=== PATIENT | female | born 1940 | race Caucasian/White ===

== ENCOUNTER → 2023-05-11 10:02 | Outpatient (REF) | payer MEDICARE, OTHER, SELFPAY ==
[2023-05-11 13:17] LABS: Free T3 2.68 pg/ml (2.77-5.27)
[2023-05-11 13:30] LABS: TSH 9.86 uIU/ml (0.47-4.68)
== END ==
LOC: HWLAB 10:02
PROVIDERS: ATTENDING PHYSICIAN Internal Medicine Endocrinology, Diabetes & Metabolism; FAMILY PHYSICIAN Internal Medicine
DX: E05.80 Other thyrotoxicosis without thyrotoxic crisis or storm (principal)
CPT/HCPCS: 36415; 84439; 84443; 84481

== ENCOUNTER → 2023-08-07 12:41 | Outpatient (REF) | payer MEDICARE, OTHER, SELFPAY ==
[2023-08-07 16:06] LABS: Free T3 1.98 pg/ml (2.77-5.27); Free T4 1.98 ng/dl (0.78-2.19)
[2023-08-07 16:20] LABS: TSH 4.54 uIU/ml (0.47-4.68)
== END ==
LOC: HWLAB 12:41
PROVIDERS: ATTENDING PHYSICIAN Internal Medicine Endocrinology, Diabetes & Metabolism; FAMILY PHYSICIAN Internal Medicine; REFERRING PHYSICIAN Internal Medicine Critical Care Medicine
DX: E05.80 Other thyrotoxicosis without thyrotoxic crisis or storm (principal); J84.9 Interstitial pulmonary disease, unspecified
CPT/HCPCS: 36415; 71046; 84439; 84443; 84481

== ENCOUNTER → 2023-11-16 13:43 | Outpatient (REF) | payer MEDICARE, OTHER, SELFPAY ==
[2023-11-16 15:48] LABS: % Basophils 0.4 % (0-2); % Eosinophils 8.6 % (0-6); % Immature Granulocytes 0.9 % (0-0.5); % Lymphocytes 18.5 % (20.5-51.1); % Monocytes 9.4 % (1.7-9.3); % Neutrophils 62.2 % (42.2-75.2); Absolute Eosinophils 0.8 10^3/uL (0-0.7); Absolute Immature Granulocytes 0.1 10^3/uL (0-0.05); Absolute Lymphocytes 1.7 10^3/uL (1.2-3.4); Absolute Monocytes 0.9 10^3/uL (0.1-0.6); Absolute Neutrophils 5.7 10^3/uL (1.4-6.5); Hematocrit 34.7 % (37.0-47.0); Hemoglobin 11.4 g/dL (12.0-16.0); Mean Corp Hgb Conc. 32.9 g/dL (33.0-37.0); Mean Corpuscular Volume 94.3 fL (81.0-99.0); Nucleated Red Blood Cells % 0 %; Platelet Count 230 10^3/uL (130-400); Red Blood Cell Count 3.68 10^6/uL (4.20-5.40); White Blood Cell Count 9.2 10^3/uL (4.8-10.8)
[2023-11-16 16:23] LABS: Albumin 4.3 g/dl (3.5-5.0); Blood Urea Nitrogen 61 mg/dl (7-17); Calcium 9.5 mg/dl (8.4-10.2); Carbon Dioxide 26 mmol/L (22-30); Chloride 98 mmol/L (98-107); Glucose 108 mg/dl (70-99); Phosphorus 4.3 mg/dl (2.5-4.5); Potassium 5.3 mmol/L (3.5-5.1); Sodium 140 mmol/L (135-145)
== END ==
LOC: HWLAB 13:43
PROVIDERS: ATTENDING PHYSICIAN Internal Medicine Cardiovascular Disease; FAMILY PHYSICIAN Internal Medicine
DX: I48.0 Paroxysmal atrial fibrillation (principal); I10 Essential (primary) hypertension; I48.19 Other persistent atrial fibrillation; I50.32 Chronic diastolic (congestive) heart failure; Z79.01 Long term (current) use of anticoagulants; Z79.899 Other long term (current) drug therapy; R42 Dizziness and giddiness; R00.1 Bradycardia, unspecified
CPT/HCPCS: 36415; 80069; 85025

== ENCOUNTER → 2023-11-20 10:24 | Outpatient (REF) | payer MEDICARE, OTHER, SELFPAY ==
[2023-11-20 11:53] LABS: Blood Urea Nitrogen 72 mg/dl (7-17); Calcium 9.6 mg/dl (8.4-10.2); Carbon Dioxide 28 mmol/L (22-30); Chloride 96 mmol/L (98-107); Glucose 100 mg/dl (70-99); Potassium 4.8 mmol/L (3.5-5.1); Sodium 139 mmol/L (135-145); eGFR 15.48
== END ==
LOC: HWLAB 10:24
PROVIDERS: ATTENDING PHYSICIAN Internal Medicine; REFERRING PHYSICIAN Internal Medicine Cardiovascular Disease
DX: M79.89 Other specified soft tissue disorders (principal); N18.31 Chronic kidney disease, stage 3a; I50.33 Acute on chronic diastolic (congestive) heart failure
CPT/HCPCS: 36415; 80048

== ENCOUNTER → 2023-11-23 10:05 | Outpatient (REF) | payer MEDICARE, OTHER, SELFPAY ==
[2023-11-23 13:03] LABS: Albumin 4.4 g/dl (3.5-5.0); Blood Urea Nitrogen 70 mg/dl (7-17); Calcium 9.8 mg/dl (8.4-10.2); Carbon Dioxide 30 mmol/L (22-30); Chloride 96 mmol/L (98-107); Glucose 107 mg/dl (70-99); Sodium 139 mmol/L (135-145); eGFR 17.65
== END ==
LOC: HWLAB 10:05
PROVIDERS: ATTENDING PHYSICIAN Internal Medicine Cardiovascular Disease; FAMILY PHYSICIAN Internal Medicine
DX: I10 Essential (primary) hypertension (principal)
CPT/HCPCS: 36415; 80069

== ENCOUNTER → 2023-11-24 08:58 | Outpatient (REF) | payer MEDICARE, OTHER, SELFPAY | LOC: HWRCS 08:58 | PROVIDERS: ATTENDING PHYSICIAN Internal Medicine Cardiovascular Disease; FAMILY PHYSICIAN Internal Medicine | DX: I50.32 Chronic diastolic (congestive) heart failure (principal); R60.0 Localized edema | CPT/HCPCS: 93306 ==

== ENCOUNTER → 2023-11-30 10:32 | Outpatient (REF) | payer MEDICARE, OTHER, SELFPAY ==
[2023-11-30 12:50] LABS: Albumin 4.2 g/dl (3.5-5.0); Blood Urea Nitrogen 86 mg/dl (7-17); Calcium 9.8 mg/dl (8.4-10.2); Carbon Dioxide 28 mmol/L (22-30); Chloride 96 mmol/L (98-107); Glucose 105 mg/dl (70-99); Potassium 4.6 mmol/L (3.5-5.1); Sodium 136 mmol/L (135-145); eGFR 15.48
== END ==
LOC: HWLAB 10:32
PROVIDERS: ATTENDING PHYSICIAN Internal Medicine Cardiovascular Disease; FAMILY PHYSICIAN Internal Medicine
DX: I10 Essential (primary) hypertension (principal)
CPT/HCPCS: 36415; 80069

== ENCOUNTER → 2023-12-07 10:08 | Outpatient (REF) | payer MEDICARE, OTHER, SELFPAY ==
[2023-12-07 12:30] LABS: Albumin 4.3 g/dl (3.5-5.0); Blood Urea Nitrogen 67 mg/dl (7-17); Calcium 9.5 mg/dl (8.4-10.2); Carbon Dioxide 28 mmol/L (22-30); Chloride 96 mmol/L (98-107); Glucose 106 mg/dl (70-99); Phosphorus 3.7 mg/dl (2.5-4.5); Potassium 4.4 mmol/L (3.5-5.1); Sodium 140 mmol/L (135-145); eGFR 21.57
== END ==
LOC: HWLAB 10:08
PROVIDERS: ATTENDING PHYSICIAN Internal Medicine Cardiovascular Disease; FAMILY PHYSICIAN Internal Medicine
DX: I10 Essential (primary) hypertension (principal)
CPT/HCPCS: 36415; 80069

== ENCOUNTER → 2023-12-14 10:40 | Outpatient (REF) | payer MEDICARE, OTHER, SELFPAY ==
[2023-12-14 17:32] LABS: Albumin 4.2 g/dl (3.5-5.0); Blood Urea Nitrogen 49 mg/dl (7-17); Calcium 9.5 mg/dl (8.4-10.2); Carbon Dioxide 30 mmol/L (22-30); Chloride 96 mmol/L (98-107); Glucose 108 mg/dl (70-99); Phosphorus 3.7 mg/dl (2.5-4.5); Potassium 4.6 mmol/L (3.5-5.1); Sodium 137 mmol/L (135-145); eGFR 21.57
== END ==
LOC: HWLAB 10:40
PROVIDERS: ATTENDING PHYSICIAN Internal Medicine Cardiovascular Disease; FAMILY PHYSICIAN Internal Medicine; REFERRING PHYSICIAN Internal Medicine
DX: I10 Essential (primary) hypertension (principal)
CPT/HCPCS: 36415; 80069

== ENCOUNTER 2024-01-26 13:01 | Inpatient (IN) | payer MEDICARE, OTHER, SELFPAY ==
[2024-01-25] VITALS (8 sets, daily range): BP systolic 114–151; BP diastolic 51–97; BMI 21.5
[2024-01-25 16:10] LABS: % Basophils 0.5 % (0-2); % Eosinophils 1.6 % (0-6); % Immature Granulocytes 1.3 % (0-0.5); % Lymphocytes 10.7 % (20.5-51.1); % Monocytes 10.6 % (1.7-9.3); % Neutrophils 75.3 % (42.2-75.2); Absolute Basophils 0.1 10^3/uL (0-0.2); Absolute Eosinophils 0.2 10^3/uL (0-0.7); Absolute Immature Granulocytes 0.1 10^3/uL (0-0.05); Absolute Neutrophils 7.1 10^3/uL (1.4-6.5); Hematocrit 36.4 % (37.0-47.0); Hemoglobin 11.8 g/dL (12.0-16.0); Mean Corp Hgb Conc. 32.4 g/dL (33.0-37.0); Mean Corpuscular Hgb 29.9 pg (27.0-31.0); Mean Corpuscular Volume 92.4 fL (81.0-99.0); Mean Platelet Volume 9.4 fL (7.4-10.4); Nucleated Red Blood Cells % 0 %; Platelet Count 291 10^3/uL (130-400); Red Blood Cell Count 3.94 10^6/uL (4.20-5.40); Red Cell Dist. Width 12.5 % (11.5-14.5); White Blood Cell Count 9.4 10^3/uL (4.8-10.8)
[2024-01-25 16:23] LABS: ALT (SGPT) 14 U/L (0-35); AST (SGOT) 28 U/L (14-36); Albumin 3.9 g/dl (3.5-5.0); Alkaline Phosphatase 83 U/L (38-126); Blood Urea Nitrogen 36 mg/dl (7-17); Calcium 9.5 mg/dl (8.4-10.2); Carbon Dioxide 31 mmol/L (22-30); Chloride 93 mmol/L (98-107); Glucose 115 mg/dl (70-99); Potassium 4.8 mmol/L (3.5-5.1); Sodium 135 mmol/L (135-145); Total Bilirubin 0.7 mg/dl (0.2-1.3); Total Protein 6.9 g/dl (6.3-8.2); eGFR 22.81
[2024-01-25 16:32] LABS: COVID-19 Antigen Negative (Negative); NT-proBNP 1530 pg/ml
[2024-01-25] MEDS: DUONEB 9 ML INH (19:03)
[2024-01-25] MEDS: SOLU-MEDROL PF 125 MG IV (19:03)
--- NOTE | 2024-01-25 19:15 | ED.GENMED ---
History of Present Illness
General
Chief Complaint: Breathing Problem
Time Seen by Provider: 01/25/24 17:32
History of Present Illness
History of Present Illness:
83-year-old female with history of asthma, hypertension, CHF, CKD, history of MS presenting to the emergency department for shortness of breath. Patient report shortness of breath for the past week. Notes productive cough and increased lower
extremity edema. She has been compliant with her water pill. Denies any associated chest pain. Denies abdominal pain or GI symptoms. Shortness of breath is worse with exertion. Denies fever or known sick contacts. She has been using her
inhalers at home, was recently prescribed a nebulizer, has not yet started it. Denies additional medical complaints
Past History
Past History
ED Past Medical History: Arrthythmia (A. fib), COPD, HTN and Other (MS in remission, chronic dyspnea)
Social History
Tobacco: Non-smoker
Alcohol: None
Living: alone
Phy Exam
Physical Exam
Physical Exam:
General: Well-appearing, no clinical signs of dehydration, nontoxic and in no acute distress
HEENT: protecting airway
Neck: appears supple
CV: Normal heart rate, regular rhythm
Resp: No accessory muscle use, no increased work of breathing, diminished air movement bilaterally with expiratory wheezing
Abd: Soft and non-distended, no tenderness to palpation
Extremities: No deformities, +2 pitting edema
Neuro: alert, no focal neurologic deficit
: deferred
Rectal: deferred
Psych: Normal affect
Skin: Intact
Scores
Heart Failure Risk
Heart Failure Risk Score: Yes
History of Stroke or TIA: No
History of intubation for respiratory distress: No
Heart rate on ED arrival >/= 110: No
SaO2 <90% on arrival on room air: No
HR >/=110 during 3min walk test (or too ill to perform test): Yes
ECG has acute ischemic changes: No
Urea >/=12mmol/L (BUN 33.6mg/dL): No
Serum CO2>/=35mmol/L: No
Troponin I or T elevated to [place] Level (0.4mg/dL): No
NT-proBNP >/=5,000ng/L (5,000pg/ml): No
HF Risk Score: 2
Admission Status: MEDIUM RISK 9.2% Consider observation or discharge to home with homecare & f/u visit to PCP/Home Economics Expert, or SNF for treatment
Course
Orders/Labs/Results
Orders:
Orders
01/25/24 15:25
Electrocardiogram (*1) Urgent
Reason for Study: Shortness of Breath
EKG- Treatment ONCE
01/25/24 15:48
COVID-19 Antigen Urgent
Source: Nasal Swab
Complete Blood Count/With Diff Urgent
Comprehensive Metabolic Panel Urgent
NT-proBNP Urgent
Influenza A+B Rapid Molecular Urgent
SHERLY Source: Nasal Swab
Specimen Description:
01/25/24 18:26
Ipratropium/Albuterol Sulfate [Duoneb] 9 ml INH R NOW STA
MethylPREDNISolone PF [Solu-Medrol Pf] 125 mg IV NOW STA
01/25/24 18:27
CR Chest - 2 Views Urgent
Comment:
Reason For Exam: SOB
01/25/24 20:22
Apixaban [Eliquis] 2.5 mg PO ONCE ONE
01/25/24 21:11
Admit/Transfer Patient As Directed
Co-Sign Provider:
Level of Care: Observation services
Assign to:: Telemetry
Physician / Group: javier
Diagnosis: viral uri asthma exacerbation
Reason for Telemetry: Arrhythmia
Date to Stop Telemetry: 01/28/24
Time to Stop Telemetry: 11:00
PRN Pain Medication Management As Directed
May give lesser potent ordered pain med per pt: Yes
preference::
Protocol:: Medication orders for pain may be administered in a
manner that supports deferring to patient preference
when the pt is:
- Requesting an ordered lesser potent pain medication.
Least to most potent pain medications are defined
as: acetaminophen < NSAID < tramadol < opioids
(morphine, oxycodone, hydromorphone).
- Requesting a lesser dose of the same medication IF
ORDERED.
- Requesting a less intrusive route of administration
if both routes are prescribed by the provider (PO <
IV).
01/25/24 21:14
Code Status As Directed
Resuscitation Status: Full Code
01/28/24 11:00
DC Protocol for Telemetry ONCE
Abnormal Lab Results
01/25/24
15:48
RBC 3.94 L 10^6/uL
(4.20-5.40)
Hgb 11.8 L g/dL
(12.0-16.0)
Hct 36.4 L %
(37.0-47.0)
MCHC 32.4 L g/dL
(33.0-37.0)
Abs Immat Gran (auto) 0.1 H 10^3/uL
(0-0.05)
Absolute Neuts (auto) 7.1 H 10^3/uL
(1.4-6.5)
Absolute Lymphs (auto) 1.0 L 10^3/uL
(1.2-3.4)
Absolute Monos (auto) 1.0 H 10^3/uL
(0.1-0.6)
Immature Gran % 1.3 H %
(0-0.5)
Neutrophils % 75.3 H %
(42.2-75.2)
Lymphocytes % 10.7 L %
(20.5-51.1)
Monocytes % 10.6 H %
(1.7-9.3)
Chloride 93 L mmol/L
(98-107)
Carbon Dioxide 31 H mmol/L
(22-30)
BUN 36 H mg/dl
(7-17)
Creatinine 2.1 H mg/dL
(0.6-1.0)
Glucose 115 H mg/dl
(70-99)
01/25/24 15:48
01/25/24 15:48
Vital Signs
Initial and Last Documented VS:
Initial Vital Signs
Pulse Resp Pulse Ox
88 20 94
01/25/24 15:17 01/25/24 15:17 01/25/24 15:17
Last Documented Vital Signs
Temp Pulse Resp BP Pulse Ox
97.9 F 90 28 136/52 92
01/25/24 15:21 01/25/24 21:15 01/25/24 21:15 01/25/24 21:00 01/25/24 21:15
MDM/Problems Addressed
MDM/Problems Addressed:
83-year-old female with history of hypertension, CHF, COPD, MS presenting for shortness of breath for the past week and dyspnea on exertion. Vital signs on arrival are normal.
On exam, patient is in no acute respiratory distress, however does have diminished air movement bilaterally with expiratory wheezing. Patient also has increased lower extremity edema from reported baseline. Differential considerations include
acute on chronic CHF/asthma exacerbation. Patient had laboratory analysis, BNP appears to be at baseline. Will obtain chest x-ray imaging to evaluate possible pneumonia versus pulmonary edema. Will start patient on DuoNebs and steroids and
reassess for improvement
20:20 -patient's chest x-ray without evidence of pneumonia or significant pulmonary edema. On reassessment patient does note mild improvement of her symptoms, however remains conversationally dyspneic. She reports that she has been sitting around
her house because she has been so short of breath. She supposed to get a nebulizer, however it has not yet been delivered to her house. At this time feel unsafe disposition given persistence of symptoms. Plan for admission for asthma exacerbation
shortness of breath
*EKG
Interpreted by ED Provider?: Yes
EKG Intrepretation Date: 01/25/24
EKG Intrepretation Time: 19:18
Interpretation: normal
Comparison EKG: changes noted (previously afib 10/03/20)
Heart Rate: 76
Rate: normal
Rhythm: sinus
[place]: normal axis
Interval: normal interval
QRS Pattern: normal QRS
Ischemia: no ischemia
*Critical Care Note
Total Time (30-74mins, 75-104mins- exclusive of procedures): Not Applicable
ED Attending Note
-
Portions of this chart may have been created with voice recognition software.� Occasional wrong word or��sound alike� substitutions may have occurred due to the inherent limitations of voice recognition software.
Discharge Plan
Departure
Patient Disposition: Admit
Date of Disposition: 01/25/24
Time of Disposition: 20:30
Presentation/result/management discussed w/ accepting MD/DO: Hospitalist
Condition: Good
Discharge Problem:
Asthma exacerbation, HAMMER (dyspnea on exertion)
Interventions
Interventions:
*Risk Screen - Suicide Last Done: 01/25/24 15:24
*General Assessment Last Done: 01/25/24 17:40
*Neglect/Abuse Screening Last Done: 01/25/24 15:24
ED- Fall Risk Assessment Last Done: 01/25/24 17:42
*ED COVID-19 Vaccine History Last Done: 01/25/24 15:24
ED- Cardiac Assessment Last Done: 01/25/24 18:00
ED- Pulmonary Assessment Last Done: 01/25/24 18:00
[2024-01-25] MEDS: ELIQUIS 2.5 MG PO (20:48)
--- NOTE | 2024-01-25 21:16 | HPS.HSE ---
Addendum entered and electronically signed by Leta Yap MD 01/25/24 22:25:
Eliquis dose reduced due to CKD/age.
Addendum entered and electronically signed by Leta Yap MD 01/25/24 21:18:
Increased bumex to 3 BID.
Original Note:
Family Physician
-
Family Physician: Félix Cavanaugh
Chief Complaint
-
shortness of breath
History of Present Illness
83-year-old female past medical history of permanent atrial fibrillation, HFpEF, hypertension, asthma, multiple sclerosis, avascular necrosis of left hip, cervical spine radiculopathy, degenerative disc disease, chronic kidney disease, presenting
for shortness of breath for the past week. Shortness of breath worse with exertion. He has productive and stable lower extremity edema. No weight gain in fact has lost weight. Denies chest pain. Denies abdominal pain or nausea vomiting or
diarrhea. No sick contacts. She is complaining of some headache and some sore throat at this time.
Medical History
Past Medical History
Past Medical History: Reports Other (permanent atrial fibrillation, HFpEF, hypertension, asthma, multiple sclerosis, avascular necrosis of left hip, cervical spine radiculopathy, degenerative disc disease, chronic kidney disease)
Past Surgical History: Reports None
Social History
Tobacco: Non-smoker
Alcohol: None
Drug: None
Family History
Family History: Not pertinent
Allergies / Home Medications
Allergies reflects when Allergies were last updated in [employer].
Home Medications with original date entered in [employer]
Allergy/Medication List:
Allergies
Allergy/AdvReac Type Severity Reaction Status Date / Time
erythromycin base Allergy Unknown Verified 07/30/20 11:38
mushroom Allergy Swelling Verified 07/30/20 11:38
NSAIDS (Non-Steroidal Allergy GI Upset Verified 07/30/20 11:38
Anti-Inflamma
shellfish derived Allergy Rash Verified 07/30/20 11:38
strawberry Allergy GI Upset Verified 07/30/20 11:38
Sulfa (Sulfonamide Allergy Unknown Verified 07/30/20 11:38
Antibiotics)
sulfamethoxazole Allergy Rash Verified 07/30/20 11:38
[From Bactrim]
trimethoprim [From Bactrim] Allergy Rash Verified 07/30/20 11:38
jared Allergy swelling Uncoded 07/30/20 11:38
and
flushing
hands and
face
margarine Allergy Rash Uncoded 07/30/20 11:38
Home Medications
mometasone 220 mcg/actuation(120 doses)breath activated powder inhaler (Asmanex Twisthaler) 1 puff inhalation R BID Lung/breathing issues 02/04/20
apixaban 5 mg tablet (Eliquis) 5 mg PO BID Blood clot prevention/tx 03/11/20
potassium chloride 20 mEq tablet,extended release(part/cryst) (Klor-Con M) 20 meq PO DAILY Electrolyte Repletion 07/30/20
acetaminophen 325 mg tablet (Tylenol) 325 mg PO DAILYPRN PRN mild pain 01/25/24
amiodarone 100 mg tablet 100 mg PO DAILY 01/25/24
bumetanide 2 mg tablet 4 mg PO DAILY Fluid retention/Swelling 01/25/24
levalbuterol tartrate 45 mcg/actuation aerosol inhaler 2 inh inhalation R Q6HPRN PRN sob 01/25/24
levothyroxine 25 mcg tablet 25 mcg PO DAILY 01/25/24
metoprolol succinate 25 mg tablet,extended release 24 hr 25 mg PO DAILY 01/25/24
Review of Systems
-
History Source: Patient
A 12 point ROS was completed and negative except as noted: Yes
Constitutional: Reports No Symptoms
EENT: Reports No Symptoms
Cardiac: Reports See HPI
Abdomen/GI: Reports No Symptoms
: Reports No Symptoms
Musculoskeletal: Reports No Symptoms
Skin: Reports No Symptoms
Neurological: Reports No Symptoms
Endocrine: Reports No Symptoms
Hematologic/Lymphatic: Reports No Symptoms
Psych: Reports No Symptoms
Physical Exam
Vital Signs
Vital Signs
Temp Pulse Resp BP Pulse Ox
97.9 F 90 30 135/51 93
01/25/24 15:21 01/25/24 20:45 01/25/24 20:45 01/25/24 20:00 01/25/24 20:45
Physical Exam
General: Well Developed, Well Nourished and No Apparent Distress
HEENT: NormoCephalic, Moist mucous membranes and Atraumatic
Respiratory: Clear
Cardiac: S1/S2, Regular Rhythm and Peripheral Edema; No Murmur or Rub
GI: Soft, Non Tender, Non Distended and Normal Bowel Sounds; No Organomegaly
Rectal: Deferred by Provider
Musculoskeletal: No Clubbing, No Cyanosis and No Edema
Skin: No Rash
Neuro: Nonfocal/grossly intact
Laboratory Results
-
01/25/24 15:48
01/25/24 15:48
Laboratory Results
Total Bilirubin 0.7 mg/dl (0.2-1.3) 01/25/24 15:48
AST 28 U/L (14-36) 01/25/24 15:48
ALT 14 U/L (0-35) 01/25/24 15:48
Alkaline Phosphatase 83 U/L (38-126) 01/25/24 15:48
Data Reviewed
-
Lab Data: Labs Reviewed by me
Old Records: Reviewed
Impression/Plan
-
IMPRESSION:
PLAN:
# Viral URI induced asthma exacerbation
-Chest x-ray showing mild cardiomegaly which is new, mild pulmonary edema
-Cardiac BNP 1500
-DuoNebs every 6 hours
-Dexamethasone 4 mg every 12
# Mild CHF exacerbation
#Chronic HFpEF
-Check I's and O's, daily weights
-Bumex 2 mg twice daily IV
Permanent atrial fibrillation
-Continue amiodarone
-Continue Eliquis
-Continue diltiazem
-Continue metoprolol
Essential hypertension
Chronic kidney disease
-Renal function at baseline
Multiple sclerosis
Avascular necrosis of left hip
Cervical spine radial apathy
Degenerative disc disease
Full code
DVT prophylaxis�Eliquis
cardiac diet
[2024-01-26] VITALS (15 sets, daily range): BP systolic 104–144; BP diastolic 51–86; BMI 29.8
[2024-01-26] MEDS: BUMEX IV (01:27)
[2024-01-26] MEDS: SYNTHROID 25 MCG PO (06:30)
[2024-01-26 06:57] LABS: % Basophils 0.3 % (0-2); % Immature Granulocytes 4.1 % (0-0.5); % Lymphocytes 11.3 % (20.5-51.1); % Monocytes 1.4 % (1.7-9.3); % Neutrophils 82.9 % (42.2-75.2); Absolute Immature Granulocytes 0.3 10^3/uL (0-0.05); Absolute Lymphocytes 0.9 10^3/uL (1.2-3.4); Absolute Monocytes 0.1 10^3/uL (0.1-0.6); Absolute Neutrophils 6.6 10^3/uL (1.4-6.5); Hematocrit 33.9 % (37.0-47.0); Hemoglobin 11.1 g/dL (12.0-16.0); Mean Corp Hgb Conc. 32.7 g/dL (33.0-37.0); Mean Corpuscular Hgb 30.6 pg (27.0-31.0); Mean Corpuscular Volume 93.4 fL (81.0-99.0); Mean Platelet Volume 9.7 fL (7.4-10.4); Nucleated Red Blood Cells % 0 %; Platelet Count 279 10^3/uL (130-400); Red Blood Cell Count 3.63 10^6/uL (4.20-5.40); Red Cell Dist. Width 12.6 % (11.5-14.5)
[2024-01-26 07:01] LABS: ALT (SGPT) 14 U/L (0-35); AST (SGOT) 25 U/L (14-36); Albumin 3.4 g/dl (3.5-5.0); Alkaline Phosphatase 75 U/L (38-126); Blood Urea Nitrogen 38 mg/dl (7-17); Calcium 9.3 mg/dl (8.4-10.2); Carbon Dioxide 27 mmol/L (22-30); Chloride 97 mmol/L (98-107); Estimated Creatinine Clearance 20 ml/min; Glucose 167 mg/dl (70-99); Potassium 5.1 mmol/L (3.5-5.1); Sodium 137 mmol/L (135-145); Total Bilirubin 0.5 mg/dl (0.2-1.3); Total Protein 6.5 g/dl (6.3-8.2); eGFR 21.57
[2024-01-26] MEDS: DUONEB 3 ML INH ×4 (07:24→19:22)
[2024-01-26] MEDS: FLOVENT 110 MCG INHALER 2 PUFF INH ×2 (07:25→19:22)
[2024-01-26] MEDS: PACERONE 100 MG PO (08:32)
[2024-01-26] MEDS: KCL 20 MEQ PO (08:32)
[2024-01-26] MEDS: TOPROL XL 25 MG PO (08:32)
[2024-01-26] MEDS: ELIQUIS 2.5 MG PO ×2 (08:32→20:45)
[2024-01-26] MEDS: DECADRON 4 MG IV ×2 (08:33→20:45)
[2024-01-26] MEDS: BUMEX 3 MG IV ×2 (08:35→17:24)
--- NOTE | 2024-01-26 13:02 | W.PN.HOSP.TC ---
Today's Communication/Plan
-
Continue with bronchodilators
Continue with IV steroids
Speech evaluation
IV diuretics
Cardiology and pulmonary evaluation
Strict I's and O's. Daily weights.
Assessment / Plan
Assessment / Plan
# Acute on chronic bronchitis/? Asthma exacerbation
#Chronic cough/interstitial lung disease/history of multiple pulmonary nodules
-Chest x-ray showing mild cardiomegaly which is new, mild pulmonary edema
-Cardiac BNP 1500
-DuoNebs every 6 hours
-Dexamethasone 4 mg every 12
-Follows with Dr. Bridges as outpatient. Pulm eval.
-speech eval
# Acute on chronic diastolic heart failure exacerbation likely secondary to meds noncompliance
-Check I's and O's, daily weights
-Recent ECHO 12/16 normal left ventricular size thickness and function. EF 60 to 65%. Normal right ventricular size and function. Mild tricuspid regurgitation. PASP of 40 mmHg. No need to repeat TTE.
-Bumex 3 mg twice daily IV
-counseled on compliance of meds as outpatient.
-Trend cr closely as with CKD.
Permanent atrial fibrillation
-Continue amiodarone
-Continue Eliquis dose decreased based on aga/cr.
-Continue diltiazem
-Continue metoprolol
Essential hypertension
Chronic kidney disease
-Renal function at baseline
Multiple sclerosis
Avascular necrosis of left hip
Cervical spine radial apathy
Degenerative disc disease
Full code
DVT prophylaxis�Eliquis
cardiac diet
Anticipated Discharge: > 48 hours
Subjective/Interval History
-
Date of Service: January 26, 2024
states of LE edema
states reduce taking her diuretics at home
recently seen by nephrology
on room air
Objective Data
-
Labs:
Laboratory Results
01/26/24
06:35
WBC 8.0
Hgb 11.1 L
Hct 33.9 L
Plt Count 279
Sodium 137
Potassium 5.1
Chloride 97 L
Carbon Dioxide 27
BUN 38 H
Creatinine 2.2 H
Glucose 167 H
Calcium 9.3
Total Bilirubin 0.5
AST 25
ALT 14
Alkaline Phosphatase 75
Vital Signs:
Vital Signs
Temp Pulse Resp BP Pulse Ox
98.2 F 85 16 128/58 94
01/26/24 10:41 01/26/24 11:19 01/26/24 11:19 01/26/24 09:00 01/26/24 12:06
Physical Exam
-
General: Well Developed and No Apparent Distress
HEENT: Normocephalic, Atraumatic and Moist Mucous Membranes
Respiratory: Decreased Breath Sounds
Cardiac: Regular Rhythm and S1/S2; Negative Murmur, Rub or Gallop
GI: Soft, Nontender, Nondistended and Normal Bowel Sounds; Negative Organomegaly
Rectal: Deferred by Provider
Musculoskeletal: No Clubbing, No Cyanosis, Edema, Right Lower Extrem and Edema, Left Lower Extrem
Skin: Negative Rash
Neuro: Awake, No Motor Deficits and Nonfocal/Grossly Intact
Psych: Calm
Data Reviewed
-
Total Time Spent with Patient (in minutes): 55
--- NOTE | 2024-01-26 14:10 | CON.CAR ---
Addendum entered and electronically signed by Milton Jenkins MD 01/26/24 16:09:
I saw and examined the patient.
The LOCKSTITCH SHOULDER JOINER's note was reviewed and I agree with the note.
Comment: Acute on chronic HFpEF with stable CKD4. She seems to be responding diuresis. CKD complicates GDMT but as an outpatient perhaps SGLT-I and MRA will be able to be added, we can review with Dr. Bowers and her manufacturing quality technician. At discharge
anticipate BID diuretic 3 times a week and just one time a day the other 4 days of the week.
Original Note:
Consultation
Consultation Request
Date/Time Consultation Requested: 01/26/2024 13:00
Date/Time Consultation Performed: 01/26/2024 14:10
Requesting Provider: Dr. Nice
Performing Provider: CASS Staley for Dr. Jenkins
Reason for Consultation: Acute on chronic heart failure exacerbation
Medical History
-
Chief Complaint: Shortness of breath
History of Present Illness:
Efrain Laughlin is an 83-year-old female (known to Dr. Bowers, her primary cake cutter machine), with persistent atrial fibrillation (maintaining sinus rhythm on amiodarone) on apixaban, HFpEF, COPD, CKD, asthma, ILD, and multiple sclerosis who presented to
the emergency department with a chief complaint of shortness of breath. She reports she self decreased her bumetanide from 2 mg twice daily to just daily dosing. She reports the urinary frequency was disruptive all to her life. Her shortness of
breath has improved since receiving intravenous diuretic. She is having no chest pain. She endorses associated moist productive cough which is improving with nebulizer treatments.
Past Medical History
Past Medical History: Arrhythmias (Persistent atrial fibrillation [on amiodarone]), Asthma, CHF (HFpEF), COPD, Renal Failure (CKD) and Other (Multiple sclerosis)
Past Surgical History: Cholecystectomy
Social History
Tobacco: Non-Smoker
Alcohol: None
Living: Alone
Employment: Retired
Family History
Family History: Reviewed & Not Pertinent
Allergies / Home Medications
Allergy/AdvReac Type Severity Reaction Status Date / Time
erythromycin base Allergy Unknown Verified 07/30/20 11:38
mushroom Allergy Swelling Verified 07/30/20 11:38
NSAIDS (Non-Steroidal Allergy GI Upset Verified 07/30/20 11:38
Anti-Inflamma
shellfish derived Allergy Rash Verified 07/30/20 11:38
strawberry Allergy GI Upset Verified 07/30/20 11:38
Sulfa (Sulfonamide Allergy Unknown Verified 07/30/20 11:38
Antibiotics)
sulfamethoxazole Allergy Rash Verified 07/30/20 11:38
[From Bactrim]
trimethoprim [From Bactrim] Allergy Rash Verified 07/30/20 11:38
jared Allergy swelling Uncoded 07/30/20 11:38
and
flushing
hands and
face
margarine Allergy Rash Uncoded 07/30/20 11:38
�Medication �Instructions �Recorded �Confirmed �Type
mometasone 220 mcg/actuation(120 1 puff inhalation R BID 02/04/20 01/25/24 History
doses)breath activated powder Lung/breathing issues
inhaler (Asmanex Twisthaler)
apixaban 5 mg tablet (Eliquis) 5 mg PO BID Blood clot 03/11/20 01/25/24 History
prevention/tx
potassium chloride 20 mEq 20 meq PO DAILY Electrolyte 07/30/20 01/25/24 History
tablet,extended Repletion
release(part/cryst) (Klor-Con M)
acetaminophen 325 mg tablet 325 mg PO DAILYPRN PRN mild pain 01/25/24 01/25/24 History
(Tylenol)
amiodarone 100 mg tablet 100 mg PO DAILY Heart 01/25/24 01/25/24 History
Disease/Condition
bumetanide 2 mg tablet 4 mg PO DAILY Fluid 01/25/24 01/25/24 History
retention/Swelling
levalbuterol tartrate 45 2 inh inhalation R Q6HPRN PRN sob 01/25/24 01/25/24 History
mcg/actuation aerosol inhaler
levothyroxine 25 mcg tablet 25 mcg PO DAILY Thyroid 01/25/24 01/25/24 History
metoprolol succinate 25 mg 25 mg PO DAILY Heart 01/25/24 01/25/24 History
tablet,extended release 24 hr Disease/Condition
Review of Systems
-
History Source: Patient
All other systems: Negative unless noted
Constitutional: Fatigue
EENT: No Symptoms
Respiratory: Cough and Trouble Breathing
Cardiac: No Symptoms
Abdomen/GI: No Symptoms
: No Symptoms
Musculoskeletal: No Symptoms and Edema
Skin: No Symptoms
Neurological: No Symptoms
Endocrine: No Symptoms
Hematologic/Lymphatic: No Symptoms
Physical Exam
Vital Signs
Temp Pulse Resp BP Pulse Ox
98.2 F 85 16 128/58 94
01/26/24 10:41 01/26/24 11:19 01/26/24 11:19 01/26/24 09:00 01/26/24 12:06
Lab Results
01/26/24 06:35
01/26/24 06:35
Use-X-Vifnicrjwit Pept 1530 pg/ml 01/25/24 15:48
Physical Exam
General: Well Developed, Well Nourished, No Apparent Distress and Comfortable
HEENT: Normocephalic, Anicteric and Moist Mucous Membranes
Respiratory: Crackles and Non Labored Respirations
Cardiac: S1/S2 and Regular Rhythm
Breast: Deferred by me
GI: Soft, Non Tender, Non Distended and Normal Bowel Sounds
Rectal: Deferred by Provider
Genito-urinary: No Costovertebral Tender
Musculoskeletal: No Clubbing, No Cyanosis and Edema
Skin: Warm and Dry
Neuro: AO x 3
Hematologic/Lymphatic: No Lymphadenopathy
Psych: Calm
Impression / Plan
-
IMPRESSION/PLAN: 83F with persistent atrial fibrillation (maintaining sinus rhythm on amiodarone) on apixaban, HFpEF, COPD, CKD, asthma, ILD, and multiple sclerosis who presented to the emergency department with a chief complaint of shortness of
breath.
Outpatient cake cutter machine: Dr. Bowers
HFpEF, acute on chronic
-Weight is down compared to office visit in November
-In the outpatient setting she is on bumetanide 2 mg twice daily, which the then decreased to bumetanide 2 daily, her home medication list is incorrect
-Diuresis with intravenous bumetanide ordered by primary service, this requires intensive monitoring given her underlying kidney disease
-Trend daily weight, I&O, and BMP with diuresis
-Heart failure education including medication adherence
-Echocardiogram was completed within the last 60 days, does not need to be repeated
CKD stage IV
-Follow with diuresis
-Managed by Dr. Ellsworth in the outpatient setting
Asthma exacerbation secondary to viral URI
-COPD, asthma, & ILD managed by Dr. Bridges in the outpatient setting
-DuoNebs and dexamethasone ordered by primary service
Persistent atrial fibrillation, currently in sinus rhythm
-Continue amiodarone
-Oral Anticoagulation: Apixaban 2.5 mg twice daily (age 83, creatinine >1.5), I confirmed with e-prescriptions, her home medication list is incorrect
-[id number]: Score at least 5 (Heart failure, HTN, age 75 or more, female gender)
Hypertension, BP stable, follow with diuresis
Multiple sclerosis, stable without acute exacerbation
DATA:
Transthoracic echocardiogram, 11/24/2023:
CONCLUSIONS
Normal left ventricular size, wall thickness and systolic function.
LV ejection fraction is 60-65% by Mckinnon's method of discs.
Normal right ventricular size and function.
Mild tricuspid regurgitation.
Estimated pulmonary artery pressure of 40 mmHg, assuming a right atrial
pressure of 3 mmHg.
Compared to prior from February 06, 2020, estimated PASP is mildly elevated at
40 mmHg previously 27 mmHg.
--- NOTE | 2024-01-26 14:54 | PTOTSP ---
ST Acute Care Evaluation
Pt is currently presenting with clinical signs suspicious for possible pharyngeal dysphagia. Pt would benefit from an instrumental swallow study to gather more information.
Recommendations:
- Downgrade diet to SOFT BITE SIZED SOLIDS and continue with regular thin liquids with meds whole in puree.
- Aspiration precautions: Continue with HOB upright for all PO intake; small bites/sips; alternate bites/sips; eat/drink slowly; cough/clear throat if vocal quality sounds atypical.
- DAY CARE WORKER to complete instrumental swallow study for more information.
- DAY CARE WORKER to provide additional recommendations pending the results of the instrumental swallow study.
--- NOTE | 2024-01-26 17:44 | PTCARENOTE ---
Pt arrived to unit via wheelchair from ED. Pt ambulated with assist x1 into the room and was able to stand on the scale. Pt placed on child monitor, sinus rhythm. All other VSS. Pt is alert and oriented x3. Denies any pain. Lungs clear. HR
regular. +1 b/l LE edema. IV bumex given per APR. Skin intact. Pt is currently resting in the chair. Able to make needs known. All needs are meet at this time. Call portillo is within reach.
[2024-01-27] VITALS (7 sets, daily range): BP systolic 126–150; BP diastolic 65–74; PULSE 87; O2SAT 96; BMI 29.6
[2024-01-27] MEDS: SYNTHROID 25 MCG PO (05:51)
[2024-01-27 07:16] LABS: % Basophils 0.2 % (0-2); % Immature Granulocytes 4.1 % (0-0.5); % Lymphocytes 4.3 % (20.5-51.1); % Monocytes 3.8 % (1.7-9.3); % Neutrophils 87.6 % (42.2-75.2); Absolute Immature Granulocytes 0.9 10^3/uL (0-0.05); Absolute Lymphocytes 0.9 10^3/uL (1.2-3.4); Absolute Monocytes 0.8 10^3/uL (0.1-0.6); Absolute Neutrophils 18.9 10^3/uL (1.4-6.5); Hematocrit 34.5 % (37.0-47.0); Hemoglobin 11.7 g/dL (12.0-16.0); Mean Corp Hgb Conc. 33.9 g/dL (33.0-37.0); Mean Corpuscular Hgb 30.5 pg (27.0-31.0); Mean Corpuscular Volume 90.1 fL (81.0-99.0); Mean Platelet Volume 9.9 fL (7.4-10.4); Nucleated Red Blood Cells % 0 %; Platelet Count 291 10^3/uL (130-400); Red Blood Cell Count 3.83 10^6/uL (4.20-5.40); Red Cell Dist. Width 12.7 % (11.5-14.5); White Blood Cell Count 21.6 10^3/uL (4.8-10.8)
[2024-01-27] MEDS: DUONEB 3 ML INH ×4 (07:29→19:20)
[2024-01-27] MEDS: FLOVENT 110 MCG INHALER 2 PUFF INH ×2 (07:29→19:21)
[2024-01-27 07:37] LABS: Blood Urea Nitrogen 50 mg/dl (7-17); Calcium 9.8 mg/dl (8.4-10.2); Carbon Dioxide 28 mmol/L (22-30); Chloride 96 mmol/L (98-107); Estimated Creatinine Clearance 15 ml/min; Glucose 158 mg/dl (70-99); Potassium 4.5 mmol/L (3.5-5.1); Sodium 137 mmol/L (135-145); eGFR 20.45
[2024-01-27] MEDS: PACERONE 100 MG PO (08:20)
[2024-01-27] MEDS: TOPROL XL 25 MG PO (08:20)
[2024-01-27] MEDS: ELIQUIS 2.5 MG PO ×2 (08:20→20:20)
[2024-01-27] MEDS: KCL 20 MEQ PO (08:20)
[2024-01-27] MEDS: DECADRON 4 MG IV ×2 (08:22→20:19)
[2024-01-27] MEDS: BUMEX 3 MG IV (08:22)
--- NOTE | 2024-01-27 08:35 | PTOTSP ---
Speech Language Pathology
VIDEOFLUOROSCOPIC SWALLOWING EXAMINATION (VSE) completed. Functional oropharyngeal swallow noted. No significant pharyngeal residue, and no penetration/aspiration noted. Esophageal sweep demonstrated significant residue and questionable small
Zenker's diverticulum. Can consider GI consult as outpatient if pt interested.
Recommend:
(1) Regular solids/thin liquids
(2) General aspiration precautions
(3) Meds as tolerated
(4) TACO MAKER to sign off. Please reconsult as indicated
--- NOTE | 2024-01-27 10:20 | W.PN.CD ---
Today's Communication / Plan
-
Hold p.m. diuresis for rising creatinine.
Hopefully can transition to p.o. diuretics tomorrow.
Impression / Plan
-
IMPRESSION/PLAN: 83F with persistent atrial fibrillation (maintaining sinus rhythm on amiodarone) on apixaban, HFpEF, COPD, CKD, asthma, ILD, and multiple sclerosis who presented to the emergency department with a chief complaint of shortness of
breath.
Outpatient clinical review nurse: Dr. Bowers
HFpEF, acute on chronic
-Weight is down compared to office visit in November
-In the outpatient setting she is on bumetanide 2 mg twice daily, which the then decreased to bumetanide 2 daily, her home medication list is incorrect
-Creatinine is rising, hold p.m. dose of diuretics and resume p.o. tomorrow if kidney function is stable
-Trend daily weight, I&O, and BMP with diuresis
-Heart failure education including medication adherence
-Echocardiogram was completed within the last 60 days, does not need to be repeated
Significant leukocytosis
-WBC 21 today, previously normal
-May be spurious. No sign/symptoms of infection
-Workup per primary team
CKD stage IV
-Follow with holding p.m. diuresis
-Managed by Dr. Ellsworth in the outpatient setting
Asthma exacerbation secondary to viral URI
-COPD, asthma, & ILD managed by Dr. Bridges in the outpatient setting
-DuoNebs and dexamethasone ordered by primary service
Persistent atrial fibrillation, currently in sinus rhythm
-Continue amiodarone
-Oral Anticoagulation: Apixaban 2.5 mg twice daily (age 83, creatinine >1.5), confirmed with e-prescriptions, her home medication list is incorrect
-[id number]: Score at least 5 (Heart failure, HTN, age 75 or more, female gender)
Hypertension, BP stable, follow with diuresis
Multiple sclerosis, stable without acute exacerbation
DATA:
Transthoracic echocardiogram, 11/24/2023:
CONCLUSIONS
Normal left ventricular size, wall thickness and systolic function.
LV ejection fraction is 60-65% by Mckinnon's method of discs.
Normal right ventricular size and function.
Mild tricuspid regurgitation.
Estimated pulmonary artery pressure of 40 mmHg, assuming a right atrial
pressure of 3 mmHg.
Compared to prior from February 06, 2020, estimated PASP is mildly elevated at
40 mmHg previously 27 mmHg.
Subjective: Feels significantly improved compared to prior. Received 3 mg IV Bumex twice daily yesterday. Weight is 66.4 kg from 66.8 kg yesterday. Creatinine is stable.
Physical Exam
Vital Signs/Labs
Vital Signs
Temp Pulse Resp BP Pulse Ox
97.7 F 82 16 132/65 93
01/27/24 07:39 01/27/24 07:39 01/27/24 07:39 01/27/24 07:39 01/27/24 07:39
01/26/24 01/27/24 01/28/24
06:59 06:59 06:59
Actual Weight 67.9 kg 66.451 kg
01/27/24 06:42
01/27/24 06:42
01/25/24
15:48
[id number] Pept 1530
Physical Exam
Constitutional: No acute distress and Comfortable
Cardiovascular: Rhythm & rate is regular, Pedal edema present, S1S2 is normal and Murmur/rub/gallop absent
Respiratory: Respiratory effort normal and Lungs clear to auscul.
Data Reviewed
-
Date of Service: January 27, 2024
Medical Decision Making: Reviewed Test Results, Independent Historian Assessment, Test Interpretation and Review of Case with other Provider
Echo: Report Reviewed by me
Labs: Labs Reviewed by me
--- NOTE | 2024-01-27 10:30 | CON.PUL ---
Consultation
Consultation Request
Date/Time Consultation Requested: 01/27/24-8 a.m.
Date/Time Consultation Performed: 01/27/24-8:30 AM
Requesting Provider: Hospitalist
Performing Provider: Dr. Rodriguez
Reason for Consultation: Shortness of breath
Medical History
-
Chief Complaint: Shortness of breath
History of Present Illness:
83-year-old female patient with underlying asthma followed by Dr. Bridges who also has chronic heart failure with preserved EF and stable chronic kidney disease stage IV presented with increasing shortness of breath and pulmonary was consulted for
shortness of breath/asthma 01/27/2024.. The patient feels improved since she came to the hospital. She states that her legs had swollen. They've improved. She also had increasing shortness breath, wheezing, no fevers, chills, productive cough,
but has some chest congestion in the middle nonproductive cough. She has no pleurisy, and offered no complaints of abdominal pain, nausea, focal weakness
Past Medical History
Past Medical History: None ( COPD/asthma. interstitial lung disease. Multiple pulmonary nodules. Heart failure, preserved EF. atrial fibrillation. Multiple sclerosis. Avascular necrosis left hip. Cervical spine radiculopathy. Chronic kidney
disease. Cholecystectomy.)
Social History
Tobacco: Non-smoker
Drug: None
Personal:
Living: With Family
Occupational Exposures: No known asbestos exposure
Environmental Exposures: . No known tuberculosis exposure
Family History
Family History: Other ( Father-CAD and cancer. Mother-CAD.)
Allergies / Home Medications
Allergies
Allergy/AdvReac Type Severity Reaction Status Date / Time
erythromycin base Allergy Unknown Verified 07/30/20 11:38
mushroom Allergy Swelling Verified 07/30/20 11:38
NSAIDS (Non-Steroidal Allergy GI Upset Verified 07/30/20 11:38
Anti-Inflamma
shellfish derived Allergy Rash Verified 07/30/20 11:38
strawberry Allergy GI Upset Verified 07/30/20 11:38
Sulfa (Sulfonamide Allergy Unknown Verified 07/30/20 11:38
Antibiotics)
sulfamethoxazole Allergy Rash Verified 07/30/20 11:38
[From Bactrim]
trimethoprim [From Bactrim] Allergy Rash Verified 07/30/20 11:38
jared Allergy swelling Uncoded 07/30/20 11:38
and
flushing
hands and
face
margarine Allergy Rash Uncoded 07/30/20 11:38
Home Medications
�Medication �Instructions �Recorded �Confirmed �Last Taken �Type
mometasone 220 mcg/actuation(120 1 puff inhalation R BID 02/04/20 01/25/24 01/25/24 History
doses)breath activated powder Lung/breathing issues
inhaler (Asmanex Twisthaler)
apixaban 5 mg tablet (Eliquis) 5 mg PO BID Blood clot 03/11/20 01/25/24 01/25/24 History
prevention/tx
potassium chloride 20 mEq 20 meq PO DAILY Electrolyte 07/30/20 01/25/24 01/25/24 History
tablet,extended Repletion
release(part/cryst) (Klor-Con M)
acetaminophen 325 mg tablet 325 mg PO DAILYPRN PRN mild pain 01/25/24 01/25/24 Unknown History
(Tylenol)
amiodarone 100 mg tablet 100 mg PO DAILY Heart 01/25/24 01/25/24 01/25/24 History
Disease/Condition
bumetanide 2 mg tablet 4 mg PO DAILY Fluid 01/25/24 01/25/24 01/25/24 History
retention/Swelling
levalbuterol tartrate 45 2 inh inhalation R Q6HPRN PRN sob 01/25/24 01/25/24 Unknown History
mcg/actuation aerosol inhaler
levothyroxine 25 mcg tablet 25 mcg PO DAILY Thyroid 01/25/24 01/25/24 01/25/24 History
metoprolol succinate 25 mg 25 mg PO DAILY Heart 01/25/24 01/25/24 01/25/24 History
tablet,extended release 24 hr Disease/Condition
Review of Systems
-
Unable to Obtain full review of systems at this time due to: Other ( per HPI)
Vitals / Labs / Diagnostic Testing
Vital Signs
Temp Pulse Resp BP Pulse Ox
97.7 F 82 16 132/65 93
01/27/24 07:39 01/27/24 07:39 01/27/24 07:39 01/27/24 07:39 01/27/24 07:39
Lab Data
01/27/24 06:42
01/27/24 06:42
Microbiology
01/25/24 15:48 Nasal Swab Influenza Types A & B (URVASHI) - Final
Negative for Influenza A & B, NAAT
Negative results must be combined with clinical observations
and patient history.
Nucleic Acid Amplification test (NAAT)performed on the
[employer] NOW platform.
Diagnostic Testing:
Physical Exam
-
Exam:
HEENT atraumatic normocephalic and anicteric. Heart was regular without murmur. Chest Diminished breath sounds, forced wheezes and rare basilar crackles. Integument without rashes or icterus. Neurologic exam without weakness or numbness.
Abdomen soft and nondistended. The patient had no JVD, cyanosis, clubbing, lower extremity edema.
Assessment
-
83-year-old female patient with underlying asthma followed by Dr. Bridges who also has chronic heart failure with preserved EF and stable chronic kidney disease stage IV presented with increasing shortness of breath and pulmonary was consulted for
shortness of breath/asthma 01/27/2024.
Bronchitis with mild acute exacerbation of asthma.
Diastolic heart failure with acute exacerbation.
Leukocytosis.
Dnkqmk-csyyywirxf-breretyoro 11.7.
NALINI
Hyperglycemia
Conditions present prior to admission:
COPD/asthma.
Interstitial lung disease.
Multiple pulmonary nodules-scattered bilateral stable 2020 through 2023
Heart failure, preserved EF.
Atrial fibrillation.
Multiple sclerosis.
Avascular necrosis left hip.
Cervical spine radiculopathy.
Chronic kidney disease.
Cholecystectomy.
Plan
Respiratory decompensation, likely a combination of CHF as well as bronchitis/asthma exacerbation.
Supplement oxygen as needed.
Decadron-fairly rapid taper.
Incentive spirometry.
Nebulizers as needed-minimal bronchospasm at this point.
Aspiration precautions.
Diuresis as tolerated.
Monitor intake/output, weight, lower extremity edema and renal function
Cardiology following-correspondence reviewed.
Diuresis on hold due to rising creatinine.
Monitor leukocytosis.
Observe off antibiotics-no temperature or clear-cut infiltrate on chest x-ray.
Low threshold for antibiotics if has temperature her clinical picture dictates otherwise.
Monitor hemoglobin.
Monitor blood sugar.
Consults patient as needed
DVT prophylaxis-on Eliquis.
Nutrition
Early mobilization
The patient last saw Dr. Bridges 11/10/2023 and has an appointment 04/12/2024-we will be seeing sooner after this hospitalization
Diagnostic data:
Chest x-ray 01/25/24-mild CHF.
CT chest 04/01/22-stability of micronodular is scattered throughout both lung tripp since 09/2020
�CXR 08/07/23: stable multiple small nodules, compared to films as far back as 2021.� Mild cardiomegaly
CT chest 04/01/22: multiple bilateral micronodules. This is stable compared to 09/25/20
CXR 09/24/21: mild basilar interstitial changes, stable
CXR 06/03/21: questionable increased retrocardiac infiltrate per my review. also with improved biapical interstitial changes when compared to prior x-ray (my rev). Per report, chest x-ray stable
CT chest 09/25/20: scattered centrilobular nodules, bronchiall wall thickening. Subcentimeter mediastinal adenopathy. per my review, this may be slightly worse compared to February 2020
CXR 08/01/20: mild cardiomegalyy, no interstitial changes
Abd CT 03/10/20: Scattered subpleural nodules at the base
There are no films for my review. However, CT chest per report from 09/14/2017 reveals multiple small nodules less than 5mm with mild biapical scar and reticular nodule thickening. Per report, this is unchanged when compared to CT chest from 2009.
Neither of these images are available for my review. Chest x-ray 04/28/17 reveals improvement in left basilar atelectasis when compared to 04/25/17 which identified a left lower lobe pneumonia. Doppler study 04/26/17 reveals chronic peripheral thrombus in
the left femoral vein.
echo 02/06/20: normal biventricular function, no significant valor disease, atrial fibrillation, PASP 27
Echo 10/12/19: normal biventricular function, mild eccentric mitral regurgitation, biatrial enlargement, PASP 38
Echocardiogram 04/27/17 reveals normal biventricular function, pulmonary artery pressure 34, no significant valvular disease.
[place] 04/11/22: FVC 0.79/41%, FEV1 0.58/41%, ratio 69. Coughing through study noted. FVC slightly decreased c/t last test
[place] 10/15/21: FVC 1.02/53%, FEV1 0.62/44%, ratio 61. This is stable compared to May 2021
[place] 06/14/21: FVC 0.99/50%, FEV1 0.55/38%, ratio 56. Compared to November 2020, FEV1 is stable but FVC has dropped significantly from 1.21-0.99
[place] 12/18/20: FVC 1.21/61%, FEV1 0.66/46%, ratio 55. Patient coughing throughout test. When compared to prior spirometry, this is stable/improved
PFT 08/18/17: FVC 0.99/46%, FEV1 0.62/39%, DLCO 4.96/29%. She was unable to perform lung capacity maneuver. Spirometry 06/15/17 reveals FVC 1.28/60%, FEV1 0.78/49%, ratio 77. There is a 26% improvement in the FVC following bronchodilator.
Data Reviewed
-
PFT: Report reviewed by me
EKG: Report reviewed by me
Radiology: Image personally visualized and interpreted and Report reviewed by me
CT Scan: Report reviewed by me
Medical Tests (Nuc Med, Echo etc): Report reviewed by me
Labs: Labs reviewed by me
Old Records: Reviewed
Total Time Spent with Patient (in minutes): 65
--- NOTE | 2024-01-27 11:04 | W.PN.HOSP.TC ---
Today's Communication/Plan
-
pulm eval pending
hold bumex
trend cr
pt/ot
s/p VSE
Assessment / Plan
Assessment / Plan
# Acute on chronic bronchitis/? Asthma exacerbation
#Chronic cough/interstitial lung disease/history of multiple pulmonary nodules
-Chest x-ray showing mild cardiomegaly which is new, mild pulmonary edema
-Cardiac BNP 1500
-DuoNebs every 6 hours
-Dexamethasone 4 mg every 12
-Follows with Dr. Bridges as outpatient. Pulm eval.
-speech eval -passed shallow eval. s/p VSE-no signs of aspiration noted.
# Acute on chronic diastolic heart failure exacerbation likely secondary to meds noncompliance
-Check I's and O's, daily weights
-Recent ECHO 12/16 normal left ventricular size thickness and function. EF 60 to 65%. Normal right ventricular size and function. Mild tricuspid regurgitation. PASP of 40 mmHg. No need to repeat TTE.
-Bumex 3 mg twice daily IV-can probably de-escalate in next 24-36h. Hold PM dose of diuretics.
-counseled on compliance of meds as outpatient.
-Trend cr closely as with CKD.
Permanent atrial fibrillation
-Continue amiodarone
-Continue Eliquis dose decreased based on aga/cr.
-Continue diltiazem
-Continue metoprolol
Essential hypertension
Chronic kidney disease
-mild uptrend in Cr. PM dose of diuretics held
Multiple sclerosis
Avascular necrosis of left hip
Cervical spine radial apathy
Degenerative disc disease
Full code
DVT prophylaxis�Eliquis
cardiac diet
PT/OT
Anticipated Discharge: 24 - 48 hours
Subjective/Interval History
-
Date of Service: January 27, 2024
states breathing has improved
on room air
underwent VSE earlier
Objective Data
-
Labs:
Laboratory Results
01/27/24
06:42
WBC 21.6 H
Hgb 11.7 L
Hct 34.5 L
Plt Count 291
Sodium 137
Potassium 4.5
Chloride 96 L
Carbon Dioxide 28
BUN 50 H
Creatinine 2.3 H
Glucose 158 H
Calcium 9.8
Vital Signs:
Vital Signs
Temp Pulse Resp BP Pulse Ox
97.7 F 82 16 132/65 93
01/27/24 07:39 01/27/24 07:39 01/27/24 07:39 01/27/24 07:39 01/27/24 07:39
I&O
01/26/24 01/27/24 01/28/24
06:59 06:59 06:59
Intake Total 325 / 325 120 / 120
Balance 325 / 325 120 / 120
Physical Exam
-
General: Well Developed and No Apparent Distress
HEENT: Normocephalic, Atraumatic and Moist Mucous Membranes
Respiratory: Decreased Breath Sounds
Cardiac: Regular Rhythm and S1/S2; Negative Murmur, Rub or Gallop
GI: Soft, Nontender, Nondistended and Normal Bowel Sounds; Negative Organomegaly
Rectal: Deferred by Provider
Musculoskeletal: No Clubbing, No Cyanosis, Edema, Right Lower Extrem and Edema, Left Lower Extrem
Skin: Negative Rash
Neuro: Awake, No Motor Deficits and Nonfocal/Grossly Intact
Psych: Calm
Data Reviewed
-
Total Time Spent with Patient (in minutes): 52
--- NOTE | 2024-01-27 15:54 | PTCARENOTE ---
patient denies any complaints, mild sob with exertion, tolerating diet, sitting oob in chair, vss, will continue to monitor.
--- NOTE | 2024-01-27 17:28 | CM ---
Addendum entered by HAMZAH Stewart 01/27/24 17:32:
Patient has nebulizer.
Original Note:
Reviewed chart, met with patient to obtain information for assessment. Patient stated that she lives alone in a one story house with one step to enter. She is independent with her ADLs and personal care. 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
cooking, cleaning and laundry. Her nephew takes her to appointments and he and his assist with shopping.
She denied use of DME.
Patient has had VN in the past through .
She has been to [facility].
Patient has a prescription plan and uses, [facility] in [place] for all of her medications.
Her PCP is, William Cavanaugh.
Patient stated that she feels she is at baseline and would like to return home when stable for discharge.
Plan: Case management will continue to follow and assist with discharge planning. Home when cleared.
[2024-01-28] VITALS (14 sets, daily range): BP systolic 126–168; BP diastolic 47–99; PULSE 87; O2SAT 94; BMI 29.9
[2024-01-28 06:16] LABS: % Basophils 0.1 % (0-2); % Immature Granulocytes 3.5 % (0-0.5); % Lymphocytes 3.4 % (20.5-51.1); % Monocytes 4.3 % (1.7-9.3); % Neutrophils 88.7 % (42.2-75.2); Absolute Immature Granulocytes 0.7 10^3/uL (0-0.05); Absolute Lymphocytes 0.7 10^3/uL (1.2-3.4); Absolute Monocytes 0.9 10^3/uL (0.1-0.6); Absolute Neutrophils 17.8 10^3/uL (1.4-6.5); Hematocrit 33.3 % (37.0-47.0); Hemoglobin 10.6 g/dL (12.0-16.0); Mean Corp Hgb Conc. 31.8 g/dL (33.0-37.0); Mean Corpuscular Hgb 29.8 pg (27.0-31.0); Mean Corpuscular Volume 93.5 fL (81.0-99.0); Mean Platelet Volume 9.9 fL (7.4-10.4); Nucleated Red Blood Cells % 0 %; Platelet Count 277 10^3/uL (130-400); Red Blood Cell Count 3.56 10^6/uL (4.20-5.40); Red Cell Dist. Width 12.9 % (11.5-14.5)
[2024-01-28 06:37] LABS: Blood Urea Nitrogen 57 mg/dl (7-17); Calcium 9.5 mg/dl (8.4-10.2); Carbon Dioxide 28 mmol/L (22-30); Chloride 96 mmol/L (98-107); Estimated Creatinine Clearance 14 ml/min; Glucose 159 mg/dl (70-99); Potassium 4.5 mmol/L (3.5-5.1); Sodium 136 mmol/L (135-145)
[2024-01-28] MEDS: SYNTHROID 25 MCG PO (07:34)
[2024-01-28] MEDS: DUONEB 3 ML INH ×4 (07:35→19:29)
[2024-01-28] MEDS: FLOVENT 110 MCG INHALER 2 PUFF INH ×2 (07:35→19:29)
[2024-01-28] MEDS: KCL 20 MEQ PO (08:54)
[2024-01-28] MEDS: ELIQUIS 2.5 MG PO ×2 (08:54→20:31)
[2024-01-28] MEDS: PACERONE 100 MG PO (08:55)
[2024-01-28] MEDS: DECADRON 4 MG IV ×2 (08:55→23:24)
[2024-01-28] MEDS: TOPROL XL 25 MG PO (08:55)
--- NOTE | 2024-01-28 09:21 | W.PN.PUL.V3 ---
Today's Communication / Plan
-
Wean oxygen.
Increase activity.
Nebulizes continue
Change Decadron to prednisone 40 mg with taper-outlined.
Pulmonary-we will sign off- Please call with questions.
Outpatient pulmonary follow-up
Assessment
-
83-year-old female patient with underlying asthma followed by Dr. Bridges who also has chronic heart failure with preserved EF and stable chronic kidney disease stage IV presented with increasing shortness of breath and pulmonary was consulted for
shortness of breath/asthma 01/27/2024.
Bronchitis with mild acute exacerbation of asthma.
Diastolic heart failure with acute exacerbation.
Leukocytosis.
Ufcqcl-fjwrgldwlq-mgauidbogw 11.7.
NALINI
Hyperglycemia
Conditions present prior to admission:
COPD/asthma.
Interstitial lung disease.
Multiple pulmonary nodules-scattered bilateral stable 2020 through 2023
Heart failure, preserved EF.
Atrial fibrillation.
Multiple sclerosis.
Avascular necrosis left hip.
Cervical spine radiculopathy.
Chronic kidney disease.
Cholecystectomy.
Plan
Respiratory decompensation, likely a combination of CHF as well as bronchitis/asthma exacerbation.
Supplement oxygen as needed-currently on room air
Decadron-fairly rapid taper-Changed to prednisone 40 mg-fairly rapid taper-40 mg daily for 3 days, then 30 mg daily for 3 days, then 20 mg daily for 3 days and then 10 mg daily for 3 days and then discontinue
Incentive spirometry.
Nebulizers as needed-minimal bronchospasm at this point.
Aspiration precautions.
Diuresis continues as tolerated.
Monitor intake/output, weight, lower extremity edema and renal function
Cardiology following-correspondence reviewed-creatinine rising-diuresis on hold
Diuresis to resume and renal function improves
Monitor leukocytosis.
Observe off antibiotics-no temperature or clear-cut infiltrate on chest x-ray.
Low threshold for antibiotics if has temperature her clinical picture dictates otherwise.
Monitor hemoglobin-Currently 10.6
Monitor blood sugar.
Consults patient as needed
DVT prophylaxis-on Eliquis.
Nutrition
Early mobilization.
Pulmonary status has improved-begin prednisone taper-pulmonary signing off- Please call with questions
The patient last saw Dr. Bridges 11/10/2023 and has an appointment 04/12/2024-we will be seeing sooner after this hospitalization
Diagnostic data:
Chest x-ray 01/25/24-mild CHF.
CT chest 04/01/22-stability of micronodular is scattered throughout both lung tripp since 09/2020
�CXR 08/07/23: stable multiple small nodules, compared to films as far back as 2021.� Mild cardiomegaly
CT chest 04/01/22: multiple bilateral micronodules. This is stable compared to 09/25/20
CXR 09/24/21: mild basilar interstitial changes, stable
CXR 06/03/21: questionable increased retrocardiac infiltrate per my review. also with improved biapical interstitial changes when compared to prior x-ray (my rev). Per report, chest x-ray stable
CT chest 09/25/20: scattered centrilobular nodules, bronchiall wall thickening. Subcentimeter mediastinal adenopathy. per my review, this may be slightly worse compared to February 2020
CXR 08/01/20: mild cardiomegalyy, no interstitial changes
Abd CT 03/10/20: Scattered subpleural nodules at the base
There are no films for my review. However, CT chest per report from 09/14/2017 reveals multiple small nodules less than 5mm with mild biapical scar and reticular nodule thickening. Per report, this is unchanged when compared to CT chest from 2009.
Neither of these images are available for my review. Chest x-ray 04/28/17 reveals improvement in left basilar atelectasis when compared to 04/25/17 which identified a left lower lobe pneumonia. Doppler study 04/26/17 reveals chronic peripheral thrombus in
the left femoral vein.
echo 02/06/20: normal biventricular function, no significant valor disease, atrial fibrillation, PASP 27
Echo 10/12/19: normal biventricular function, mild eccentric mitral regurgitation, biatrial enlargement, PASP 38
Echocardiogram 04/27/17 reveals normal biventricular function, pulmonary artery pressure 34, no significant valvular disease.
[place] 04/11/22: FVC 0.79/41%, FEV1 0.58/41%, ratio 69. Coughing through study noted. FVC slightly decreased c/t last test
[place] 10/15/21: FVC 1.02/53%, FEV1 0.62/44%, ratio 61. This is stable compared to May 2021
[place] 06/14/21: FVC 0.99/50%, FEV1 0.55/38%, ratio 56. Compared to November 2020, FEV1 is stable but FVC has dropped significantly from 1.21-0.99
[place] 12/18/20: FVC 1.21/61%, FEV1 0.66/46%, ratio 55. Patient coughing throughout test. When compared to prior spirometry, this is stable/improved
PFT 08/18/17: FVC 0.99/46%, FEV1 0.62/39%, DLCO 4.96/29%. She was unable to perform lung capacity maneuver. Spirometry 06/15/17 reveals FVC 1.28/60%, FEV1 0.78/49%, ratio 77. There is a 26% improvement in the FVC following bronchodilator.
Subjective Data
-
Date of Service:
Date of Service: January 28, 2024
Chief Complaint: Pulmonary Follow Up and Dyspnea Follow Up
Subjective:
Overall feels better, less short of breath, no complaints of chest congestion or wheezing
Review of Systems
General: Other ( her HPI)
Objective Data
Data Reviewed
Vital Signs / I&O:
Vital Signs
Temp Pulse Resp BP Pulse Ox
97.7 F 83 18 146/63 96
01/28/24 07:00 01/28/24 08:55 01/28/24 07:41 01/28/24 08:55 12/05/24 07:41
Intake and Output
01/27/24 01/28/24 01/29/24
06:59 06:59 06:59
Intake Total 325 / 325 720 / 720
Output Total 200 / 200
Balance 325 / 325 520 / 520
SaO2: 96
Physical Exam
General: Respiratory Distress (n) and Comfortable
HEENT: Normocephalic and Anicteric
Cardiovascular: Regular Rhythm
Respiratory: Crackles (n), Rhonchi (n), Non-Labored Respirations, Accessory Resp Muscle Use (n) and Stridor (n)
GI: Soft, Non Distended and Non Tender
Neurology: Awake, Alert and No Motor Deficits
Skin: Warm, Good Color, Cyanosis (n), Jaundice (n) and Rash (n)
Labs/Micro/Reports
Lab Data
01/28/24 05:36
01/28/24 05:36
Microbiology
01/25/24 15:48 Nasal Swab Influenza Types A & B (URVASHI) - Final
Negative for Influenza A & B, NAAT
Negative results must be combined with clinical observations
and patient history.
Nucleic Acid Amplification test (NAAT)performed on the
[employer] NOW platform.
--- NOTE | 2024-01-28 09:49 | W.PN.CD ---
Today's Communication / Plan
-
Patient known to me from previous outpatient visits. She has a mild degree of edema at baseline.
Creatinine up to 2.5 would continue to hold diuretic and monitor renal function. When renal function has stabilized would resume oral diuretic
Impression / Plan
-
IMPRESSION/PLAN: 83F with persistent atrial fibrillation (maintaining sinus rhythm on amiodarone) on apixaban, HFpEF, COPD, CKD, asthma, ILD, and multiple sclerosis who presented to the emergency department with a chief complaint of shortness of
breath.
Outpatient mitigation supervisor: Dr. Bowers
HFpEF, acute on chronic
-Weight is down compared to office visit in November
-In the outpatient setting she is on bumetanide 2 mg twice daily, which the then decreased to bumetanide 2 daily, her home medication list is incorrect
-Creatinine is rising, diuretic on hold. resume when renal function stable
-Trend daily weight, I&O, and BMP with diuresis
-Heart failure education including medication adherence
-Echocardiogram was completed within the last 60 days, does not need to be repeated
Significant leukocytosis
-WBC 21 today, previously normal
-May be spurious. No sign/symptoms of infection
-Workup per primary team
CKD stage IV
-Follow with holding p.m. diuresis
-Managed by Dr. Ellsworth in the outpatient setting
Asthma exacerbation secondary to viral URI
-COPD, asthma, & ILD managed by Dr. Bridges in the outpatient setting
-DuoNebs and dexamethasone ordered by primary service
Persistent atrial fibrillation, currently in sinus rhythm
-Continue amiodarone
-Oral Anticoagulation: Apixaban 2.5 mg twice daily (age 83, creatinine >1.5), confirmed with e-prescriptions, her home medication list is incorrect
-[id number]: Score at least 5 (Heart failure, HTN, age 75 or more, female gender)
Hypertension, BP stable, follow with diuresis
Multiple sclerosis, stable without acute exacerbation
DATA:
Transthoracic echocardiogram, 11/24/2023:
CONCLUSIONS
Normal left ventricular size, wall thickness and systolic function.
LV ejection fraction is 60-65% by Mckinnon's method of discs.
Normal right ventricular size and function.
Mild tricuspid regurgitation.
Estimated pulmonary artery pressure of 40 mmHg, assuming a right atrial
pressure of 3 mmHg.
Compared to prior from February 06, 2020, estimated PASP is mildly elevated at
40 mmHg previously 27 mmHg.
Subjective: Feels significantly improved compared to prior. Received 3 mg IV Bumex twice daily yesterday. Weight is 66.4 kg from 66.8 kg yesterday. Creatinine is stable.
Physical Exam
Vital Signs/Labs
Vital Signs
Temp Pulse Resp BP Pulse Ox
97.7 F 83 18 146/63 96
01/28/24 07:00 01/28/24 08:55 01/28/24 07:41 01/28/24 08:55 01/28/24 09:21
01/27/24 01/28/24 01/29/24
06:59 06:59 06:59
Actual Weight 66.451 kg 67.086 kg
01/28/24 05:36
01/28/24 05:36
01/25/24
15:48
Soo-T-Odwkqipjrnn Pept 1530
Physical Exam
Constitutional: No acute distress
EENT: Anicteric
Cardiovascular: Rhythm & rate is regular
Respiratory: Other (Rare crackle at base)
GI: Soft
Neuro/Psych: Alert
Other: Other (Mild lower extremity edema)
Data Reviewed
-
Date of Service: January 28, 2024
Medical Decision Making: Reviewed Test Results
Medical Tests (PFT, Pathology etc): Report Reviewed by me
Labs: Labs Reviewed by me
--- NOTE | 2024-01-28 11:11 | W.PN.HOSP.TC ---
Addendum entered and electronically signed by Dion Nice MD 01/28/24 14:32:
Patient had a hamburger for lunch. After eating lunch patient stated of food being stuck in the back of her throat. Upon my evaluation patient was sitting up and vomiting with intermittent food chunks and saliva being spit out. Patient was able
to talk in complete sentences. Patient not tachypneic. Patient was on room air. No stridor was heard. Slowly mild food particles were being spit out. Patient does feel like pain in the back of her throat. Will order abdominal x-ray. GI has
been consulted. Patient understands if food does not get dislodged may require endoscopy.
Of note patient did pass food and swallow earlier this hospitalization.
Original Note:
Today's Communication/Plan
-
trend bmp
po steroids taper in 24h
diuretics held
Assessment / Plan
Assessment / Plan
# Acute on chronic bronchitis/? Asthma exacerbation
#Chronic cough/interstitial lung disease/history of multiple pulmonary nodules
-Chest x-ray showing mild cardiomegaly which is new, mild pulmonary edema
-Cardiac BNP 1500
-DuoNebs every 6 hours
-Dexamethasone 4 mg every 12 with po prednisone taper in 24h.
-Follows with Dr. Bridges as outpatient. Pulm eval.
-speech eval -passed shallow eval. s/p VSE-no signs of aspiration noted.
# Acute on chronic diastolic heart failure exacerbation likely secondary to meds noncompliance
-Check I's and O's, daily weights
-Recent ECHO 12/16 normal left ventricular size thickness and function. EF 60 to 65%. Normal right ventricular size and function. Mild tricuspid regurgitation. PASP of 40 mmHg. No need to repeat TTE.
-Bumex 3 mg twice daily IV-hold as wtih bump in Cr.
-counseled on compliance of meds as outpatient.
-Trend cr closely as with CKD.
Permanent atrial fibrillation
-Continue amiodarone
-Continue Eliquis dose decreased based on aga/cr.
-Continue diltiazem
-Continue metoprolol
Essential hypertension
Chronic kidney disease
-mild uptrend in Cr. Diuretics held.
Multiple sclerosis
Avascular necrosis of left hip
Cervical spine radial apathy
Degenerative disc disease
Full code
DVT prophylaxis�Eliquis
cardiac diet
PT/OT-home
Anticipated Discharge: Within 24 hours
Subjective/Interval History
-
Date of Service: January 28, 2024
states breathing and LE edema has improved
Cr bumped
Objective Data
-
Labs:
Laboratory Results
01/28/24
05:36
WBC 20.0 H
Hgb 10.6 L
Hct 33.3 L
Plt Count 277
Sodium 136
Potassium 4.5
Chloride 96 L
Carbon Dioxide 28
BUN 57 H
Creatinine 2.5 H
Glucose 159 H
Calcium 9.5
Vital Signs:
Vital Signs
Temp Pulse Resp BP Pulse Ox
98 F 87 17 130/71 94
01/28/24 11:00 01/28/24 11:00 01/28/24 11:00 01/28/24 11:00 01/28/24 11:00
I&O
01/27/24 01/28/24 01/29/24
06:59 06:59 06:59
Intake Total 325 / 325 720 / 720
Output Total 200 / 200
Balance 325 / 325 520 / 520
Physical Exam
-
General: Well Developed and No Apparent Distress
HEENT: Normocephalic, Atraumatic and Moist Mucous Membranes
Respiratory: Decreased Breath Sounds
Cardiac: Regular Rhythm and S1/S2; Negative Murmur, Rub or Gallop
GI: Soft, Nontender, Nondistended and Normal Bowel Sounds; Negative Organomegaly
Rectal: Deferred by Provider
Musculoskeletal: No Clubbing, No Cyanosis, Edema, Right Lower Extrem (improved ) and Edema, Left Lower Extrem (improved )
Skin: Negative Rash
Neuro: Awake, No Motor Deficits and Nonfocal/Grossly Intact
Psych: Calm
--- NOTE | 2024-01-28 15:10 | CON.GI ---
Consultation
-
Date/Time Consultation Performed: 01/28/24
Performing Provider: Félix Silverio MD
Reason for Consultation: food impaction
Medical History
Chief Complaint / HPI
Chief Complaint: dysphagian
History of Present Illness:
The patient is an 83-year-old female past medical history as noted admitted on the second with shortness of breath, diagnosed with likely combination of CHF and asthma exacerbation. She had been doing okay, with no GI issues until eating lunch
today with a hamburger when had sudden onset of dysphagia. Since then she has been unable to tolerate her secretions. She has had multiple regurgitation episodes though still feels that she has food in her esophagus. She had 1 similar episode to
this in the 1980s and had an endoscopy around that time though states that everything else was normal as it had no issues of dysphagia up until then. 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 She denies any abdominal pain, chest
pain and her breathing feels at baseline.
Past Medical History
Past Medical History: Other (permanent atrial fibrillation, HFpEF, hypertension, asthma, multiple sclerosis, avascular necrosis of left hip, cervical spine radiculopathy, degenerative disc disease, chronic kidney disease)
Past Surgical History: None
Social History
Tobacco: Non-Smoker
Alcohol: None
Family History
Family History: Reviewed & Not Pertinent
Allergies / Home Medications
Allergy/AdvReac Type Severity Reaction Status Date / Time
erythromycin base Allergy Unknown Verified 07/30/20 11:38
mushroom Allergy Swelling Verified 07/30/20 11:38
NSAIDS (Non-Steroidal Allergy GI Upset Verified 07/30/20 11:38
Anti-Inflamma
shellfish derived Allergy Rash Verified 07/30/20 11:38
strawberry Allergy GI Upset Verified 07/30/20 11:38
Sulfa (Sulfonamide Allergy Unknown Verified 07/30/20 11:38
Antibiotics)
sulfamethoxazole Allergy Rash Verified 07/30/20 11:38
[From Bactrim]
trimethoprim [From Bactrim] Allergy Rash Verified 07/30/20 11:38
jared Allergy swelling Uncoded 07/30/20 11:38
and
flushing
hands and
face
margarine Allergy Rash Uncoded 07/30/20 11:38
�Medication �Instructions �Recorded
mometasone 220 mcg/actuation(120 1 puff inhalation R BID 02/04/20
doses)breath activated powder Lung/breathing issues
inhaler (Asmanex Twisthaler)
apixaban 5 mg tablet (Eliquis) 5 mg PO BID Blood clot 03/11/20
prevention/tx
potassium chloride 20 mEq 20 meq PO DAILY Electrolyte 07/30/20
tablet,extended Repletion
release(part/cryst) (Klor-Con M)
acetaminophen 325 mg tablet 325 mg PO DAILYPRN PRN mild pain 01/25/24
(Tylenol)
amiodarone 100 mg tablet 100 mg PO DAILY Heart 01/25/24
Disease/Condition
bumetanide 2 mg tablet 4 mg PO DAILY Fluid 01/25/24
retention/Swelling
levalbuterol tartrate 45 2 inh inhalation R Q6HPRN PRN sob 01/25/24
mcg/actuation aerosol inhaler
levothyroxine 25 mcg tablet 25 mcg PO DAILY Thyroid 01/25/24
metoprolol succinate 25 mg 25 mg PO DAILY Heart 01/25/24
tablet,extended release 24 hr Disease/Condition
Review of Systems
-
All other systems: A 12 pt ROS was Negative except as stated above in HPI
Vital Signs
Temp Pulse Resp BP Pulse Ox
98 F 81 16 130/71 96
01/28/24 11:00 01/28/24 11:26 01/28/24 11:26 01/28/24 11:00 01/28/24 11:26
Physical Exam
Exam
General: NAD
HEENT: MMM, anicteric, no lymphadenopathy
Heart: Regular, no murmurs
Lungs: Few expiratory wheezes bilaterally
Abdomen: normal bowel sounds, soft, no tenderness, no rebound or guarding, no masses, bruits or ascites
Extremeties: no edema
Skin: no rashes
Results
WBC 20.0 10^3/uL (4.8-10.8) H 01/28/24 05:36
Hgb 10.6 g/dL (12.0-16.0) L 01/28/24 05:36
Hct 33.3 % (37.0-47.0) L 01/28/24 05:36
MCV 93.5 fL (81.0-99.0) 01/28/24 05:36
Plt Count 277 10^3/uL (130-400) 01/28/24 05:36
Absolute Neuts (auto) 17.8 10^3/uL (1.4-6.5) H 01/28/24 05:36
Sodium 136 mmol/L (135-145) 01/28/24 05:36
Potassium 4.5 mmol/L (3.5-5.1) 01/28/24 05:36
Chloride 96 mmol/L (98-107) L 01/28/24 05:36
Carbon Dioxide 28 mmol/L (22-30) 01/28/24 05:36
BUN 57 mg/dl (7-17) H 01/28/24 05:36
Creatinine 2.5 mg/dL (0.6-1.0) H 01/28/24 05:36
Calcium 9.5 mg/dl (8.4-10.2) 01/28/24 05:36
Total Bilirubin 0.5 mg/dl (0.2-1.3) 01/26/24 06:35
AST 25 U/L (14-36) 01/26/24 06:35
ALT 14 U/L (0-35) 01/26/24 06:35
Alkaline Phosphatase 75 U/L (38-126) 01/26/24 06:35
Diagnostic Image Results:
Prior GI Procedures:
EGD:
Colonoscopy:
Assessment / Plan
-
1. Dysphagia: With acute onset food bolus, with no symptoms prior, now still unable to tolerate secretions. At this point we will give glucagon challenge, if not responding then we will plan EGD.
-
-
Thank you for consultation and allowing me to participate in the patient's care. Please call the construction supervisor GI physician during the after hours with any questions or concerns.
[2024-01-28] MEDS: DUONEB INH (15:20)
[2024-01-28] MEDS: GlucaGen 1 MG IV (15:33)
--- NOTE | 2024-01-28 17:39 | SUR.PHASEI ---
Received pt from GI lab, sat's low on simple mask. Continuous non productive moist cough. Tachypneic. Dr. De La Vega notified, received order for Duoneb. Continues to cough, after breathing treatment, deep suctioning. Sat's 89% on 15L simple mask
Ceferino at bedside. Will switch to non-rebreather. Will continue to monitor
--- NOTE | 2024-01-28 18:15 | W.PN.UPDATE ---
Update Note
Progress Note Update
Went to see patient in PACU. Initially after EGD, when patient returned to PACU she desatted and was put on nonrebreather 15 L. Over time her deep suctioning her symptoms started to get better. When I saw the patient she was 96% on 4 L. Wheezing
on exam. Already got Decadron in GI lab. Will restart 4 every 8hrs Decadron for now. Duoneb. Currently not febrile. If spike fever overnight then start antibiotics. Chest x-ray. Mentation remains AAOX3.
--- NOTE | 2024-01-28 18:28 | PTCARENOTE ---
1800 addendum... Patient vurrently on 4L N/C saturation 94%, breathing improved, remians diminished/coarse throughout. Intermittent persistent harsh/moist cough desats to 89-90%, recovering to 94% after coughing resolves. Evaluated by Dr Sharpe in
PACU, to return to floor on tele monitor, will order CXR and restart steroids (updated on last dose received in GI room). Report called to Kellie RN on floor with updtes. Patient stable for transfer.
[2024-01-29 03:34] VITALS: BP 148/78
[2024-01-29] MEDS: TYLENOL 325 MG PO (03:42)
[2024-01-29] MEDS: SYNTHROID 25 MCG PO (05:14)
[2024-01-29] MEDS: DUONEB 3 ML INH ×4 (07:13→19:37)
[2024-01-29] MEDS: FLOVENT 110 MCG INHALER 2 PUFF INH ×2 (07:13→19:37)
[2024-01-29 07:32] LABS: % Basophils 0.2 % (0-2); % Immature Granulocytes 4.4 % (0-0.5); % Lymphocytes 2.8 % (20.5-51.1); % Monocytes 6.5 % (1.7-9.3); % Neutrophils 86.1 % (42.2-75.2); Absolute Basophils 0.1 10^3/uL (0-0.2); Absolute Immature Granulocytes 0.9 10^3/uL (0-0.05); Absolute Lymphocytes 0.6 10^3/uL (1.2-3.4); Absolute Monocytes 1.3 10^3/uL (0.1-0.6); Absolute Neutrophils 17.4 10^3/uL (1.4-6.5); Hematocrit 33.8 % (37.0-47.0); Hemoglobin 10.8 g/dL (12.0-16.0); Mean Corpuscular Hgb 30.1 pg (27.0-31.0); Mean Corpuscular Volume 94.2 fL (81.0-99.0); Mean Platelet Volume 9.8 fL (7.4-10.4); Nucleated Red Blood Cells % 0 %; Platelet Count 266 10^3/uL (130-400); Red Blood Cell Count 3.59 10^6/uL (4.20-5.40); Red Cell Dist. Width 12.9 % (11.5-14.5); White Blood Cell Count 20.3 10^3/uL (4.8-10.8)
[2024-01-29 07:39] VITALS: BP 143/64
[2024-01-29 07:49] LABS: Blood Urea Nitrogen 62 mg/dl (7-17); Calcium 9.5 mg/dl (8.4-10.2); Carbon Dioxide 30 mmol/L (22-30); Chloride 99 mmol/L (98-107); Estimated Creatinine Clearance 15 ml/min; Glucose 128 mg/dl (70-99); Potassium 5.5 mmol/L (3.5-5.1); Sodium 137 mmol/L (135-145); eGFR 20.45
[2024-01-29] MEDS: DECADRON 4 MG IV (08:54)
[2024-01-29] MEDS: ELIQUIS 2.5 MG PO ×2 (08:55→19:43)
[2024-01-29] MEDS: PACERONE 100 MG PO (08:55)
[2024-01-29] MEDS: TOPROL XL 25 MG PO (08:55)
[2024-01-29] MEDS: KCL PO (09:08)
[2024-01-29 10:15] VITALS: BMI 29.9
--- NOTE | 2024-01-29 10:30 | CM ---
Reviewed chart, PT/OT. Per their recommendation patient would be safe returning to home. Will discuss VN with patient to determine if she feels that she would want services after discharge.
Plan: Case management will continue to follow and assist with discharge planning. Home possible VN need.
[2024-01-29 10:53] VITALS: BP 124/70
--- NOTE | 2024-01-29 11:01 | PN.CDI ---
CDI
- -
CDI:
Physician Documentation Request
Admit Date: 01/26/24 13:01
Dear Doctor Arlet,
Clinical Indicators:
Patient admitted with acute on chronic diastolic heart failure.
01/25 Cardiology consult, '...stable CKD stage IV...'
01/27 PN, 'Chronic kidney disease-mild uptrend in Cr. Diuretics held.'
Cr/GFR trend:
01/25/24 01/26/24 01/27/24
15:48 06:35 06:42
Creatinine 2.1 H 2.2 H 2.3 H
eGFR 22.81 21.57 20.45
01/28/24
05:36
Creatinine 2.5 H
eGFR 18.50
Please clarify which of the following accurately represents the patient's renal status:
NALINI on CKD IV
CKD IV with rise in creatinine only
Other
Criteria for NALINI*
1 Increase in serum creatinine by > or = to 0.3 mg/dL (> or = to 26.5 micromol/L) within 48 hours, OR
2 Increase in serum creatinine to > or = to 1.5 times baseline, which is known or presumed to have occurred within 7 days, OR
3 Urine volume < 0.5 nL/kg/hour for six hours
Stages of Chronic Kidney Disease*
Level Description GFR
G1 Normal or High >90
G2 Mildly decreased 60-89
G3a Mildly to moderately decreased 45-59
G3b Moderately to severely decreased 30-44
G4 Severely decreased 15-29
G5 Kidney failure <15
Use of terms such as suspected, likely, concern for, or probable (associated with a specific diagnosis that is being evaluated, monitored, or treated as if it exists) are acceptable and can be coded in the inpatient setting, when documented at the
time of discharge.
Thank you,
Lara Alberts RN BSN
CDI Specialist
available via tiger text
Please use your independent medical judgment in providing your response.
*Source: Kidney Disease: Improving Global Outcomes (KDIGO) 2012
--- NOTE | 2024-01-29 11:13 | W.PN.CD ---
Addendum entered and electronically signed by Efren Phillips MD 01/29/24 12:30:
83 yo female with PMH of HFPEF, CKD4 admitted with acute on chronic HFPEF. She was diuresed, then developed NALINI. Exam with irregular rhythm, no murmurs, trace edema. Cr 2.1-->2.5-->2.3.
Cr is improving. Resume home bumex 2mg PO daily, and trend, Cr, weight.
Original Note:
Today's Communication / Plan
-
continue to hold diuretics and trend renal function
Impression / Plan
-
IMPRESSION/PLAN: 83F with persistent atrial fibrillation (maintaining sinus rhythm on amiodarone) on apixaban, HFpEF, COPD, CKD, asthma, ILD, and multiple sclerosis who presented to the emergency department with a chief complaint of shortness of
breath.
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
HFpEF, acute on chronic.
-In the outpatient setting she is on bumetanide 2 mg twice daily, which then decreased to bumetanide 2 daily
-Creatinine is rising, diuretic on hold. resume when renal function stable
-Trend daily weight, I&O, and BMP with diuresis
-Heart failure education including medication adherence
-Echocardiogram was completed within the last 60 days, does not need to be repeated
Significant leukocytosis
-previously normal
-May be spurious. No sign/symptoms of infection
-Workup per primary team
CKD stage IV
-holding diuresis
-Managed by Dr. Ellsworth in the outpatient setting
Asthma exacerbation secondary to viral URI
-COPD, asthma, & ILD managed by Dr. Bridges in the outpatient setting
-DuoNebs and dexamethasone ordered by primary service
Persistent atrial fibrillation, currently in sinus rhythm
-Continue amiodarone
-Oral Anticoagulation: Apixaban 2.5 mg twice daily (age 83, creatinine >1.5), confirmed with e-prescriptions, her home medication list is incorrect
-[id number]: Score at least 5 (Heart failure, HTN, age 75 or more, female gender)
Hypertension, BP stable, follow with diuresis
Multiple sclerosis, stable without acute exacerbation
DATA:
Transthoracic echocardiogram, 11/24/2023:
CONCLUSIONS
Normal left ventricular size, wall thickness and systolic function.
LV ejection fraction is 60-65% by Mckinnon's method of discs.
Normal right ventricular size and function.
Mild tricuspid regurgitation.
Estimated pulmonary artery pressure of 40 mmHg, assuming a right atrial
pressure of 3 mmHg.
Compared to prior from February 06, 2020, estimated PASP is mildly elevated at
40 mmHg previously 27 mmHg.
Physical Exam
Vital Signs/Labs
Vital Signs
Temp Pulse Resp BP Pulse Ox
97.6 F 74 16 124/70 98
01/29/24 10:53 01/29/24 10:53 01/29/24 10:53 01/29/24 10:53 01/29/24 10:53
01/28/24 01/29/24 01/30/24
06:59 06:59 06:59
Actual Weight 147 lb 14.4 oz 148 lb 1.6 oz
01/29/24 06:47
01/29/24 06:48
01/25/24
15:48
Bzi-M-Vxziypfnyom Pept 1530
Physical Exam
Constitutional: No acute distress and Comfortable
EENT: Anicteric and Moist mucous membranes
Cardiovascular: Rhythm & rate is regular
Respiratory: Respiratory effort normal
GI: Soft, Non tender and Normal bowel sounds
Neuro/Psych: AO x 3
Other: Skin (warm, dry)
Data Reviewed
-
Date of Service: January 29, 2024
Medical Decision Making: Reviewed Test Results
Echo: Report Reviewed by me
Labs: Labs Reviewed by me
Old Records: Reviewed
--- NOTE | 2024-01-29 12:11 | W.PN.HOSP.TC ---
Today's Communication/Plan
-
trend cr. Improved to 2.3
Fulls. Advanced per GI
po steroids
wean o2
Assessment / Plan
Assessment / Plan
# Acute on chronic bronchitis/? Asthma exacerbation
#Chronic cough/interstitial lung disease/history of multiple pulmonary nodules
-Chest x-ray showing mild cardiomegaly which is new, mild pulmonary edema
-Cardiac BNP 1500
-DuoNebs every 6 hours
-Dexamethasone 4 mg every 12 with po prednisone
-Follows with Dr. Bridges as outpatient. Pulm eval.
-speech eval -passed shallow eval. s/p VSE-no signs of aspiration noted.
# Acute on chronic diastolic heart failure exacerbation likely secondary to meds noncompliance
-Check I's and O's, daily weights
-Recent ECHO 12/16 normal left ventricular size thickness and function. EF 60 to 65%. Normal right ventricular size and function. Mild tricuspid regurgitation. PASP of 40 mmHg. No need to repeat TTE.
-Bumex 3 mg twice daily IV-hold as wtih bump in Cr.
-counseled on compliance of meds as outpatient.
-Trend cr closely as with CKD.
#Acute hypoxic respiratory failure
#Dysphagia w/food impaction on 01/28/24
-s/p glucagon
-s/p emergent EGD. EGD finding with food was found in the middle third of the esophagus and lower third esophagus. Removal was accomplished with the scope and ease passage into the stomach with no resistance. Esophagitis no bleeding was found in
the mid esophagus. Stomach and duodenum was normal.
-Currently on fulls.
-Advanced per GI
Permanent atrial fibrillation
-Continue amiodarone
-Continue Eliquis dose decreased based on aga/cr.
-Continue diltiazem
-Continue metoprolol
Essential hypertension
Chronic kidney disease stage IV
-Diuretics Held. Cr improved to 2.3
Multiple sclerosis
Avascular necrosis of left hip
Cervical spine radial apathy
Degenerative disc disease
Mild hyperkalemia
-monitfor for now
Full code
DVT prophylaxis�Eliquis
cardiac diet
PT/OT-home
Anticipated Discharge: > 48 hours
Subjective/Interval History
-
Date of Service: January 29, 2024
Yesterday events noted
on 4L oxygen
denies any chest pain or sob
Objective Data
-
Labs:
Laboratory Results
01/29/24 01/29/24
06:47 06:48
WBC 20.3 H
Hgb 10.8 L
Hct 33.8 L
Plt Count 266
Sodium 137
Potassium 5.5 H
Chloride 99
Carbon Dioxide 30
BUN 62 H
Creatinine 2.3 H
Glucose 128 H
Calcium 9.5
Vital Signs:
Vital Signs
Temp Pulse Resp BP Pulse Ox
97.6 F 69 18 124/70 98
01/29/24 10:53 01/29/24 11:17 01/29/24 11:17 01/29/24 10:53 01/29/24 11:17
I&O
01/28/24 01/29/24 01/30/24
06:59 06:59 06:59
Intake Total 720 / 720 420 / 420
Output Total 200 / 200
Balance 520 / 520 420 / 420
Data Reviewed
-
Total Time Spent with Patient (in minutes): 55
--- NOTE | 2024-01-29 12:22 | W.PN.GI.CBS2 ---
Addendum entered and electronically signed by Sarai Madrigal MD 01/29/24 12:28:
also noted to have esophagitis in the mid esophagus on EGD likely from food impaction will treat her with pantoprazole for 2 to 4 weeks
Original Note:
Today's Communication / Plan
-
adv diet
Assessment / Plan
-
acute food bolus impaction after eating a hamburger yesterday and was unable to tolerate secretions and did not respond to glucagon had an emergent endoscopy with Dr. Silverio with removal of the food and is tolerating full liquids. Will advance to
a soft diet and if symptoms recur may need evaluation with speech no obvious ring or stricture was noted on endoscopy. I encouraged her to eat small bites of food and softer foods and avoid dry bread or meat
Will sign off and will be available as needed
Subjective
Subjective
Date of Service: January 29, 2024
tolerating full liquids and denies any symptoms of dysphagia currently
Objective
Data Reviewed
Laboratory Data:
Laboratory Results
01/29/24 06:47
01/29/24 06:48
Laboratory Results
Total Bilirubin 0.5 mg/dl (0.2-1.3) 01/26/24 06:35
AST 25 U/L (14-36) 01/26/24 06:35
ALT 14 U/L (0-35) 01/26/24 06:35
Alkaline Phosphatase 75 U/L (38-126) 01/26/24 06:35
Vital Signs and I&O:
Vital Signs
Temp Pulse Resp BP Pulse Ox
97.6 F 69 18 124/70 98
01/29/24 10:53 01/29/24 11:17 01/29/24 11:17 01/29/24 10:53 01/29/24 11:17
I&O
01/28/24 01/29/24 01/30/24
06:59 06:59 06:59
Intake Total 720 / 720 420 / 420
Output Total 200 / 200
Balance 520 / 520 420 / 420
Physical Exam
Physical Exam
Cardiology: Normal Sinus Rhythm
Pulmonary: Rales
GI: Soft, Non Distended, Non Tender and Normal Bowel Sounds
[2024-01-29] MEDS: BUMEX 2 MG PO (12:39)
[2024-01-29] MEDS: LOKELMA 5 GRAM PO (12:39)
[2024-01-29 14:57] VITALS: BP 138/73
[2024-01-29] MEDS: TYLENOL 650 MG PO (20:45)
[2024-01-29 23:35] VITALS: BP 137/74
[2024-01-30] MEDS: SYNTHROID 25 MCG PO (05:05)
[2024-01-30 06:00] VITALS: BMI 29.6
[2024-01-30 07:16] LABS: Blood Urea Nitrogen 61 mg/dl (7-17); Calcium 9.4 mg/dl (8.4-10.2); Carbon Dioxide 31 mmol/L (22-30); Chloride 96 mmol/L (98-107); Estimated Creatinine Clearance 14 ml/min; Glucose 121 mg/dl (70-99); Potassium 5.1 mmol/L (3.5-5.1); Sodium 137 mmol/L (135-145); eGFR 19.43
[2024-01-30 07:30] LABS: Hematocrit 35.3 % (37.0-47.0); Hemoglobin 11.3 g/dL (12.0-16.0); Mean Corpuscular Hgb 30.1 pg (27.0-31.0); Mean Corpuscular Volume 93.9 fL (81.0-99.0); Platelet Count 252 10^3/uL (130-400); Red Blood Cell Count 3.76 10^6/uL (4.20-5.40); White Blood Cell Count 15.9 10^3/uL (4.8-10.8)
[2024-01-30] MEDS: FLOVENT 110 MCG INHALER INH ×2 (07:34→07:39)
[2024-01-30] MEDS: DUONEB 3 ML INH ×4 (07:34→19:27)
[2024-01-30 08:48] LABS: % Basophils 0.3 % (0-2); % Eosinophils 0.2 % (0-6); % Immature Granulocytes 7.1 % (0-0.5); % Monocytes 6.6 % (1.7-9.3); % Neutrophils 80.8 % (42.2-75.2); Absolute Immature Granulocytes 1.1 10^3/uL (0-0.05); Absolute Lymphocytes 0.8 10^3/uL (1.2-3.4); Absolute Monocytes 1.1 10^3/uL (0.1-0.6); Absolute Neutrophils 12.8 10^3/uL (1.4-6.5); Nucleated Red Blood Cells % 0 %
[2024-01-30 08:49] VITALS: BP 129/65
[2024-01-30] MEDS: TOPROL XL 25 MG PO (10:03)
[2024-01-30] MEDS: PACERONE 100 MG PO (10:03)
[2024-01-30] MEDS: PROTONIX 20 MG PO (10:03)
[2024-01-30] MEDS: ELIQUIS 2.5 MG PO ×2 (10:04→20:40)
[2024-01-30] MEDS: DELTASONE 40 MG PO (10:04)
[2024-01-30] MEDS: BUMEX 2 MG PO (10:15)
--- NOTE | 2024-01-30 11:26 | W.PN.CD ---
Addendum entered and electronically signed by Lisbet Tejada MD 01/30/24 13:41:
83-year-old woman with persistent atrial fibrillation, on amiodarone and apixaban, HFpEF, COPD, asthma, CKD, interstitial lung disease, multiple sclerosis who is admitted with acute on chronic heart failure with HFpEF. At this time we are still
trying to diurese. Continue Bumex.
Original Note:
Today's Communication / Plan
-
con't bumex
follw renal function
Impression / Plan
-
IMPRESSION/PLAN: 83F with persistent atrial fibrillation (maintaining sinus rhythm on amiodarone) on apixaban, HFpEF, COPD, CKD, asthma, ILD, and multiple sclerosis who presented to the emergency department with a chief complaint of shortness of
breath.
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 Bowers
HFpEF, acute on chronic.
-In the outpatient setting she is on bumetanide 2 mg twice daily, which then decreased to bumetanide 2 daily
-NALINI while here and it was held. bumex was restarted 01/28. Monitor creat closely.
-Trend daily weight, I&O, and BMP with diuresis
-Heart failure education including medication adherence
-Echocardiogram was completed within the last 60 days, does not need to be repeated
Significant leukocytosis
No sign/symptoms of infection
-Workup per primary team
CKD stage IV
-holding diuresis
-Managed by Dr. Ellsworth in the outpatient setting
Asthma exacerbation secondary to viral URI
-COPD, asthma, & ILD managed by Dr. Bridges in the outpatient setting
-DuoNebs and dexamethasone ordered by primary service
Persistent atrial fibrillation, currently in sinus rhythm
-Continue amiodarone
-Oral Anticoagulation: Apixaban 2.5 mg twice daily (age 83, creatinine >1.5), confirmed with e-prescriptions, her home medication list was incorrect
-[id number]: Score at least 5 (Heart failure, HTN, age 75 or more, female gender)
Hypertension, BP stable, follow with diuresis
Multiple sclerosis, stable without acute exacerbation
Subjective: Breathing stable, No CP
DATA:
Transthoracic echocardiogram, 11/24/2023:
CONCLUSIONS
Normal left ventricular size, wall thickness and systolic function.
LV ejection fraction is 60-65% by Mckinnon's method of discs.
Normal right ventricular size and function.
Mild tricuspid regurgitation.
Estimated pulmonary artery pressure of 40 mmHg, assuming a right atrial
pressure of 3 mmHg.
Compared to prior from February 06, 2020, estimated PASP is mildly elevated at
40 mmHg previously 27 mmHg.
Physical Exam
Vital Signs/Labs
Vital Signs
Temp Pulse Resp BP Pulse Ox
97.6 F 72 21 129/65 91
01/30/24 08:49 01/30/24 08:49 01/30/24 08:49 01/30/24 08:49 01/30/24 08:49
01/29/24 01/30/24 01/31/24
06:59 06:59 06:59
Actual Weight 66.395 kg
01/30/24 05:57
01/30/24 05:57
01/25/24
15:48
Oev-A-Laosfmrnltf Pept 1530
Physical Exam
Constitutional: No acute distress
Cardiovascular: Rhythm & rate is regular
Respiratory: Respiratory effort normal and Lungs clear to auscul.
Neuro/Psych: AO x 3
Data Reviewed
-
Date of Service: January 30, 2024
Labs: Labs Reviewed by me
--- NOTE | 2024-01-30 11:51 | W.PN.HOSP.TC ---
Today's Communication/Plan
-
start dispo effort
trend bmp
soft diet
CM for VN
pt/ot/oob
Assessment / Plan
Assessment / Plan
# Acute on chronic bronchitis/? Asthma exacerbation
#Chronic cough/interstitial lung disease/history of multiple pulmonary nodules
-Chest x-ray showing mild cardiomegaly which is new, mild pulmonary edema
-Cardiac BNP 1500
-DuoNebs every 6 hours
-Dexamethasone 4 mg every 12 with po 40mg prednisone
-Follows with Dr. Bridges as outpatient. Pulm eval.
-speech eval -passed shallow eval. s/p VSE-no signs of aspiration noted.
# Acute on chronic diastolic heart failure exacerbation likely secondary to meds noncompliance
-Check I's and O's, daily weights
-Recent ECHO 12/16 normal left ventricular size thickness and function. EF 60 to 65%. Normal right ventricular size and function. Mild tricuspid regurgitation. PASP of 40 mmHg. No need to repeat TTE.
-Bumex 3 mg twice daily IV- now switched to 2mg po bumex daily.
-counseled on compliance of meds as outpatient.
-Trend cr closely as with CKD.
#Acute hypoxic respiratory failure
#Dysphagia w/food impaction on 01/28/24
-s/p glucagon
-s/p emergent EGD. EGD finding with food was found in the middle third of the esophagus and lower third esophagus. Removal was accomplished with the scope and ease passage into the stomach with no resistance. Esophagitis no bleeding was found in
the mid esophagus. Stomach and duodenum was normal.
-cont with soft diet.
-now on room air
-Advanced per GI
Permanent atrial fibrillation
-Continue amiodarone
-Continue Eliquis dose decreased based on aga/cr.
-Continue diltiazem
-Continue metoprolol
Essential hypertension
NALINI on Chronic kidney disease stage IV
-Cr holding at 2.4. trend for now
Multiple sclerosis
Avascular necrosis of left hip
Cervical spine radial apathy
Degenerative disc disease
Mild hyperkalemia
-monitfor for now
Full code
DVT prophylaxis�Eliquis
cardiac diet
PT/OT-home
Anticipated Discharge: Within 24 hours
Subjective/Interval History
-
Date of Service: January 30, 2024
tolerating soft but with intermittent esophageal pain
on room air now
Objective Data
-
Labs:
Laboratory Results
01/30/24
05:57
WBC 15.9 H
Hgb 11.3 L
Hct 35.3 L
Plt Count 252
Sodium 137
Potassium 5.1
Chloride 96 L
Carbon Dioxide 31 H
BUN 61 H
Creatinine 2.4 H
Glucose 121 H
Calcium 9.4
Vital Signs:
Vital Signs
Temp Pulse Resp BP Pulse Ox
97.6 F 73 16 129/65 95
01/30/24 08:49 01/30/24 11:29 01/30/24 11:29 01/30/24 08:49 01/30/24 11:29
I&O
01/29/24 01/30/24 01/31/24
06:59 06:59 06:59
Intake Total 420 / 420 720 / 720
Output Total 825 / 825
Balance 420 / 420 -105 / -105
Physical Exam
-
General: Well Developed and No Apparent Distress
HEENT: Normocephalic, Atraumatic and Moist Mucous Membranes
Respiratory: Decreased Breath Sounds
Cardiac: Regular Rhythm and S1/S2; Negative Murmur, Rub or Gallop
GI: Soft, Nontender, Nondistended and Normal Bowel Sounds; Negative Organomegaly
Rectal: Deferred by Provider
Musculoskeletal: No Clubbing, No Cyanosis, Edema, Right Lower Extrem (improved ) and Edema, Left Lower Extrem (improved )
Skin: Negative Rash
Neuro: Awake, No Motor Deficits and Nonfocal/Grossly Intact
Psych: Calm
--- NOTE | 2024-01-30 14:52 | CM ---
Addendum entered by Mehreen Connell 01/30/24 16:35:
PT assessed patient today and reported to CM that SNF is recommended post acute; patient is undecided but [facility] is preference
CM unable to connect with granddaughter to discuss DC plan
CM will follow up with patient tomorrow and if agreeable, referral will be sent to [facility]
Original Note:
Plan: Discharge to home tomorrow with home health; referral sent via [facility] to [facility]
[2024-01-30 16:30] VITALS: O2SAT 93
[2024-01-30 16:54] VITALS: BP 132/70
[2024-01-30] MEDS: FLOVENT 110 MCG INHALER 2 PUFF INH (19:27)
[2024-01-30 23:36] VITALS: BP 138/75
[2024-01-31] MEDS: TYLENOL 650 MG PO (00:29)
[2024-01-31 06:00] VITALS: BMI 29.9
[2024-01-31] MEDS: SYNTHROID 25 MCG PO (06:00)
[2024-01-31 07:14] LABS: Hemoglobin 12.1 g/dL (12.0-16.0); Mean Corp Hgb Conc. 32.7 g/dL (33.0-37.0); Mean Corpuscular Hgb 30.6 pg (27.0-31.0); Mean Corpuscular Volume 93.4 fL (81.0-99.0); Mean Platelet Volume 10.1 fL (7.4-10.4); Platelet Count 240 10^3/uL (130-400); Red Blood Cell Count 3.96 10^6/uL (4.20-5.40); Red Cell Dist. Width 12.8 % (11.5-14.5)
[2024-01-31 07:35] LABS: Blood Urea Nitrogen 68 mg/dl (7-17); Calcium 9.2 mg/dl (8.4-10.2); Carbon Dioxide 29 mmol/L (22-30); Chloride 95 mmol/L (98-107); Estimated Creatinine Clearance 17 ml/min; Glucose 113 mg/dl (70-99); Potassium 5.1 mmol/L (3.5-5.1); Sodium 134 mmol/L (135-145); eGFR 24.18
[2024-01-31 08:23] VITALS: BP 130/57
[2024-01-31] MEDS: FLOVENT 110 MCG INHALER 2 PUFF INH ×2 (08:34→19:39)
[2024-01-31] MEDS: DUONEB 3 ML INH ×4 (08:34→19:39)
[2024-01-31 08:47] LABS: % Basophils 0.4 % (0-2); % Immature Granulocytes 7.1 % (0-0.5); % Lymphocytes 4.4 % (20.5-51.1); % Monocytes 7.5 % (1.7-9.3); % Neutrophils 80.6 % (42.2-75.2); Absolute Basophils 0.1 10^3/uL (0-0.2); Absolute Immature Granulocytes 1.1 10^3/uL (0-0.05); Absolute Lymphocytes 0.7 10^3/uL (1.2-3.4); Absolute Monocytes 1.2 10^3/uL (0.1-0.6); Absolute Neutrophils 12.9 10^3/uL (1.4-6.5); Nucleated Red Blood Cells % 0 %
[2024-01-31] MEDS: DELTASONE 40 MG PO (09:09)
[2024-01-31] MEDS: ELIQUIS 2.5 MG PO ×2 (09:09→20:01)
[2024-01-31] MEDS: TOPROL XL 25 MG PO (09:09)
[2024-01-31] MEDS: BUMEX 2 MG PO (09:10)
[2024-01-31] MEDS: PROTONIX 20 MG PO (09:10)
[2024-01-31] MEDS: PACERONE 100 MG PO (09:11)
--- NOTE | 2024-01-31 10:12 | CM ---
Addendum entered by Mehreen Connell 01/31/24 11:58:
IMM benefit explained; form signed
Original Note:
Per Attending, patient now agreeable to SNF; preference is [facility]
Referral sent via [facility]
--- NOTE | 2024-01-31 11:50 | W.PN.CD ---
Today's Communication / Plan
-
-Continue slowly with Bumex p.o. once a day
-Creatinine has started to improve.
Impression / Plan
-
IMPRESSION/PLAN: 83F with persistent atrial fibrillation (maintaining sinus rhythm on amiodarone) on apixaban, HFpEF, COPD, CKD, asthma, ILD, and multiple sclerosis who presented to the emergency department with a chief complaint of shortness of
breath.
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
HFpEF, acute on chronic.
-In the outpatient setting she is on bumetanide 2 mg twice daily, which then decreased to bumetanide 2 daily
-NALINI while here and it was held. bumex was restarted 01/28. Monitor creat closely.
-With diuresis, creatinine has started to improve. Continue diuresis.
-Trend daily weight, I&O, and BMP with diuresis
-Heart failure education including medication adherence
-Echocardiogram was completed within the last 60 days, does not need to be repeated
Significant leukocytosis
No sign/symptoms of infection
-Workup per primary team
CKD stage IV
-Continue diuresis
-Managed by Dr. Ellsworth in the outpatient setting
Asthma exacerbation secondary to viral URI
-COPD, asthma, & ILD managed by Dr. Bridges in the outpatient setting
-DuoNebs and dexamethasone ordered by primary service
Persistent atrial fibrillation, currently in sinus rhythm
-Continue amiodarone
-Oral Anticoagulation: Apixaban 2.5 mg twice daily (age 83, creatinine >1.5), confirmed with e-prescriptions, her home medication list was incorrect
-[id number]: Score at least 5 (Heart failure, HTN, age 75 or more, female gender)
Hypertension, BP stable, follow with diuresis
Multiple sclerosis, stable without acute exacerbation
Subjective: Breathing stable, No CP
DATA:
Transthoracic echocardiogram, 11/24/2023:
CONCLUSIONS
Normal left ventricular size, wall thickness and systolic function.
LV ejection fraction is 60-65% by Mckinnon's method of discs.
Normal right ventricular size and function.
Mild tricuspid regurgitation.
Estimated pulmonary artery pressure of 40 mmHg, assuming a right atrial
pressure of 3 mmHg.
Compared to prior from February 06, 2020, estimated PASP is mildly elevated at
40 mmHg previously 27 mmHg.
Physical Exam
Vital Signs/Labs
Vital Signs
Temp Pulse Resp BP Pulse Ox
98.1 F 70 16 130/57 96
01/31/24 08:23 01/31/24 08:38 01/31/24 08:38 01/31/24 08:23 01/31/24 08:38
01/30/24 01/31/24 02/01/24
06:59 06:59 06:59
Actual Weight 66.395 kg 66.996 kg
01/31/24 06:25
01/31/24 06:25
01/25/24
15:48
Ccz-T-Wvspqesnbtg Pept 1530
Physical Exam
Constitutional: No acute distress and Comfortable
EENT: Anicteric and Moist mucous membranes
Cardiovascular: Pedal edema is absent and JVD pressure is normal
Respiratory: Respiratory effort normal and Wheeze Absent
GI: Soft, Distention absent, Non tender and Normal bowel sounds
Neuro/Psych: Alert and Oriented
Data Reviewed
-
Date of Service: January 31, 2024
Medical Decision Making: Reviewed Test Results
EKG: Tracing Personally Visualized and interpreted
Medical Tests (PFT, Pathology etc): Discussed with Patient
Labs: Labs Reviewed by me
Old Records: Reviewed
--- NOTE | 2024-01-31 12:41 | W.PN.HOSP.TC ---
Today's Communication/Plan
-
await placement to SNF
po steroids-taper
bumex 2mg daily
Assessment / Plan
Assessment / Plan
# Acute on chronic bronchitis/? Asthma exacerbation
#Chronic cough/interstitial lung disease/history of multiple pulmonary nodules
-Chest x-ray showing mild cardiomegaly which is new, mild pulmonary edema
-Cardiac BNP 1500
-DuoNebs every 6 hours
-Dexamethasone 4 mg every 12 with po 40mg prednisone
-Follows with Dr. Bridges as outpatient. Pulm eval.
-speech eval -passed shallow eval. s/p VSE-no signs of aspiration noted.
# Acute on chronic diastolic heart failure exacerbation likely secondary to meds noncompliance
-Check I's and O's, daily weights
-Recent ECHO 12/16 normal left ventricular size thickness and function. EF 60 to 65%. Normal right ventricular size and function. Mild tricuspid regurgitation. PASP of 40 mmHg. No need to repeat TTE.
-Bumex 3 mg twice daily IV- now switched to 2mg po bumex daily.
-counseled on compliance of meds as outpatient.
-Trend cr closely as with CKD.
#Acute hypoxic respiratory failure
#Dysphagia w/food impaction on 01/28/24
-s/p glucagon
-s/p emergent EGD. EGD finding with food was found in the middle third of the esophagus and lower third esophagus. Removal was accomplished with the scope and ease passage into the stomach with no resistance. Esophagitis no bleeding was found in
the mid esophagus. Stomach and duodenum was normal.
-cont with soft diet.
-now on room air
-Advanced per GI
Permanent atrial fibrillation
-Continue amiodarone
-Continue Eliquis dose decreased based on aga/cr.
-Continue diltiazem
-Continue metoprolol
Essential hypertension
NALINI on Chronic kidney disease stage IV
-Cr holding at 2.0 trend for now
Multiple sclerosis
Avascular necrosis of left hip
Cervical spine radial apathy
Degenerative disc disease
Mild hyperkalemia
-monitfor for now
Full code
DVT prophylaxis�Eliquis
PT/OT-SNF. Pt agreed for [facility]. CM for referral. Await placement. d/w with CM.
Anticipated Discharge: Today
Subjective/Interval History
-
Date of Service: January 31, 2024
remains on soft diet
slowly trying to increase appetite
on room air
Objective Data
-
Labs:
Laboratory Results
01/31/24
06:25
WBC 16.0 H
Hgb 12.1
Hct 37.0
Plt Count 240
Sodium 134 L
Potassium 5.1
Chloride 95 L
Carbon Dioxide 29
BUN 68 H
Creatinine 2.0 H
Glucose 113 H
Calcium 9.2
Vital Signs:
Vital Signs
Temp Pulse Resp BP Pulse Ox
98.1 F 91 16 130/57 97
01/31/24 08:23 01/31/24 12:00 01/31/24 12:00 01/31/24 08:23 01/31/24 12:00
I&O
01/30/24 01/31/24 02/01/24
06:59 06:59 06:59
Intake Total 720 / 720 960 / 960
Output Total 825 / 825
Balance -105 / -105 960 / 960
Physical Exam
-
General: Well Developed and No Apparent Distress
HEENT: Normocephalic, Atraumatic and Moist Mucous Membranes
Respiratory: Decreased Breath Sounds
Cardiac: Regular Rhythm and S1/S2; Negative Murmur, Rub or Gallop
GI: Soft, Nontender, Nondistended and Normal Bowel Sounds; Negative Organomegaly
Rectal: Deferred by Provider
Musculoskeletal: No Clubbing, No Cyanosis, Edema, Right Lower Extrem (improved ) and Edema, Left Lower Extrem (improved )
Skin: Negative Rash
Neuro: Awake, No Motor Deficits and Nonfocal/Grossly Intact
Psych: Calm
[2024-01-31 16:36] VITALS: BP 138/71
[2024-01-31 23:00] VITALS: BP 128/76
[2024-02-01] MEDS: SYNTHROID 25 MCG PO (05:42)
[2024-02-01 06:00] VITALS: BMI 29.8
[2024-02-01 06:44] LABS: Hematocrit 40.4 % (37.0-47.0); Mean Corp Hgb Conc. 32.2 g/dL (33.0-37.0); Mean Corpuscular Volume 93.1 fL (81.0-99.0); Mean Platelet Volume 9.7 fL (7.4-10.4); Platelet Count 283 10^3/uL (130-400); Red Blood Cell Count 4.34 10^6/uL (4.20-5.40); Red Cell Dist. Width 12.9 % (11.5-14.5); White Blood Cell Count 18.6 10^3/uL (4.8-10.8)
[2024-02-01 06:54] VITALS: BP 135/69
[2024-02-01 07:02] LABS: Blood Urea Nitrogen 70 mg/dl (7-17); Calcium 9.4 mg/dl (8.4-10.2); Carbon Dioxide 31 mmol/L (22-30); Chloride 94 mmol/L (98-107); Estimated Creatinine Clearance 16 ml/min; Glucose 103 mg/dl (70-99); Potassium 4.4 mmol/L (3.5-5.1); Sodium 134 mmol/L (135-145); eGFR 21.57
[2024-02-01] MEDS: FLOVENT 110 MCG INHALER 2 PUFF INH (07:35)
[2024-02-01] MEDS: DUONEB 3 ML INH ×3 (07:35→15:15)
[2024-02-01 08:09] LABS: % Basophils 0.5 % (0-2); % Lymphocytes 4.1 % (20.5-51.1); % Monocytes 7.7 % (1.7-9.3); % Neutrophils 80.7 % (42.2-75.2); Absolute Basophils 0.1 10^3/uL (0-0.2); Absolute Immature Granulocytes 1.3 10^3/uL (0-0.05); Absolute Lymphocytes 0.8 10^3/uL (1.2-3.4); Absolute Monocytes 1.4 10^3/uL (0.1-0.6); Nucleated Red Blood Cells % 0 %
[2024-02-01] MEDS: PROTONIX 20 MG PO (08:33)
[2024-02-01] MEDS: TOPROL XL 25 MG PO (08:33)
[2024-02-01] MEDS: DELTASONE 40 MG PO (08:33)
[2024-02-01] MEDS: PACERONE 100 MG PO (08:34)
[2024-02-01] MEDS: ELIQUIS 2.5 MG PO (08:34)
[2024-02-01] MEDS: BUMEX 2 MG PO ×2 (08:34→16:24)
--- NOTE | 2024-02-01 08:42 | W.PN.CD ---
Today's Communication / Plan
-
Increase Bumex to 2 mg p.o. twice daily
Impression / Plan
-
IMPRESSION/PLAN: 83F with persistent atrial fibrillation (maintaining sinus rhythm on amiodarone) on apixaban, HFpEF, COPD, CKD, asthma, ILD, and multiple sclerosis who presented to the emergency department with a chief complaint of shortness of
breath.
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 Bowers
HFpEF, acute on chronic.
-In the outpatient setting she is on bumetanide 2 mg twice daily, which then decreased to bumetanide 2 daily
-NALINI while here and it was held. bumex was restarted 01/28. Monitor creat closely.
-With diuresis, creatinine has started to improve. Continue diuresis. Will try to increase to twice daily today.
-Trend daily weight, I&O, and BMP with diuresis
-Heart failure education including medication adherence
-Echocardiogram was completed within the last 60 days, does not need to be repeated
Significant leukocytosis, improving
No sign/symptoms of infection
-Workup per primary team
CKD stage IV
-Continue diuresis
-Managed by Dr. Ellsworth in the outpatient setting
Asthma exacerbation secondary to viral URI
-COPD, asthma, & ILD managed by Dr. Bridges in the outpatient setting
-DuoNebs and dexamethasone ordered by primary service
Persistent atrial fibrillation, currently in sinus rhythm
-Continue amiodarone
-Oral Anticoagulation: Apixaban 2.5 mg twice daily (age 83, creatinine >1.5), confirmed with e-prescriptions, her home medication list was incorrect
-[id number]: Score at least 5 (Heart failure, HTN, age 75 or more, female gender)
Hypertension, BP stable, follow with diuresis
Multiple sclerosis, stable without acute exacerbation
Subjective: Feeling okay today. Discouraged because she lost 5 pounds from Thursday to Thursday but then gained it back. Legs are still swollen.
DATA:
Transthoracic echocardiogram, 11/24/2023:
CONCLUSIONS
Normal left ventricular size, wall thickness and systolic function.
LV ejection fraction is 60-65% by Mckinnon's method of discs.
Normal right ventricular size and function.
Mild tricuspid regurgitation.
Estimated pulmonary artery pressure of 40 mmHg, assuming a right atrial
pressure of 3 mmHg.
Compared to prior from February 06, 2020, estimated PASP is mildly elevated at
40 mmHg previously 27 mmHg.
Physical Exam
Vital Signs/Labs
Vital Signs
Temp Pulse Resp BP Pulse Ox
98.6 F 66 16 135/69 93
02/01/24 06:54 02/01/24 07:38 02/01/24 07:38 02/01/24 06:54 02/01/24 07:38
01/31/24 02/01/24 02/02/24
06:59 06:59 06:59
Actual Weight 66.996 kg 66.905 kg
02/01/24 06:15
02/01/24 06:15
01/25/24
15:48
Foe-B-Fffzdnfwkcb Pept 1530
Physical Exam
Constitutional: No acute distress and Comfortable
Cardiovascular: Rhythm & rate is regular, Pedal edema present, S1S2 is normal and Murmur/rub/gallop absent
Respiratory: Respiratory effort normal and Lungs clear to auscul.
Data Reviewed
-
Date of Service: February 01, 2024
Medical Decision Making: Reviewed Test Results, Independent Historian Assessment, Test Interpretation and Review of Case with other Provider
Echo: Report Reviewed by me
Labs: Labs Reviewed by me
--- NOTE | 2024-02-01 13:05 | W.PN.HOSP.TC ---
Today's Communication/Plan
-
Start formoterol�budesonide inhaler at discharge
Prednisone taper, 10 mg every 3 days, at discharge
Oral Bumex 2 mg twice daily
DC to SNF
Assessment / Plan
Assessment / Plan
# Acute on chronic bronchitis/? Asthma exacerbation
#Chronic cough/interstitial lung disease/history of multiple pulmonary nodules
-Chest x-ray showing mild cardiomegaly which is new, mild pulmonary edema
-Cardiac BNP 1500
-DuoNebs every 6 hours
-Dexamethasone 4 mg every 12 with po 40mg prednisone
-Follows with Dr. Bridges as outpatient. Pulm eval.
-speech eval -passed shallow eval. s/p VSE-no signs of aspiration noted.
# Acute on chronic diastolic heart failure exacerbation likely secondary to meds noncompliance
-Check I's and O's, daily weights
-Recent ECHO 12/16 normal left ventricular size thickness and function. EF 60 to 65%. Normal right ventricular size and function. Mild tricuspid regurgitation. PASP of 40 mmHg. No need to repeat TTE.
-Bumex 3 mg twice daily IV- now switched to 2mg po bumex BID
-counseled on compliance of meds as outpatient.
-Trend cr closely as with CKD.
#Acute hypoxic respiratory failure
#Dysphagia w/food impaction on 01/28/24
-s/p glucagon
-s/p emergent EGD. EGD finding with food was found in the middle third of the esophagus and lower third esophagus. Removal was accomplished with the scope and ease passage into the stomach with no resistance. Esophagitis no bleeding was found in
the mid esophagus. Stomach and duodenum was normal.
-cont with soft diet.
-now on room air
-Advanced per GI
#Permanent atrial fibrillation
-Continue amiodarone
-Continue Eliquis dose decreased based on aga/cr.
-Continue diltiazem
-Continue metoprolol
#Essential hypertension
#NALINI on Chronic kidney disease stage IV
-Cr holding at 2.0 trend for now
#Multiple sclerosis
#Avascular necrosis of left hip
#Cervical spine radial apathy
#Degenerative disc disease
#Mild hyperkalemia
-monitfor for now
Full code
DVT prophylaxis�Eliquis
PT/OT-SNF. Pt agreed for [facility]. CM for referral. Await placement. d/w with CM.
Anticipated Discharge: Today
Subjective/Interval History
-
Date of Service: February 01, 2024
Seen and examined at the bedside while having her breathing treatment. No acute events reported overnight. AFVSS this morning
She states she feels well, is ready to be discharged to rehab
Denies any acute complaints today
Objective Data
-
Labs:
Laboratory Results
02/01/24
06:15
WBC 18.6 H
Hgb 13.0
Hct 40.4
Plt Count 283
Sodium 134 L
Potassium 4.4
Chloride 94 L
Carbon Dioxide 31 H
BUN 70 H
Creatinine 2.2 H
Glucose 103 H
Calcium 9.4
Vital Signs:
Vital Signs
Temp Pulse Resp BP Pulse Ox
98.6 F 75 16 135/69 97
02/01/24 06:54 02/01/24 11:12 02/01/24 11:12 02/01/24 06:54 02/01/24 11:12
I&O
01/31/24 02/01/24 02/02/24
06:59 06:59 06:59
Intake Total 960 / 960 1200 / 1200
Balance 960 / 960 1200 / 1200
Review of Systems
-
History Source: Patient
All other systems: Reviewed and negative
Physical Exam
-
General: Well Developed, Well Nourished, No Apparent Distress and Comfortable
HEENT: Normocephalic, Atraumatic, Moist Mucous Membranes and Anicteric
Respiratory: Clear to Auscultation and Non Labored Respirations; Negative Wheezes, Rales or Rhonchi
Cardiac: Regular Rhythm, S1/S2 and Irregular Rhythm; Negative Murmur, Rub or Gallop
GI: Soft, Nontender, Nondistended and Normal Bowel Sounds
Musculoskeletal: No Clubbing, No Cyanosis and No Edema
Skin: Warm, Dry and Normal Turgor; Negative Rash
Neuro: AO x 3 and Nonfocal/Grossly Intact
Psych: Calm
[2024-02-01 13:10] VITALS: PULSE 91; O2SAT 96
--- NOTE | 2024-02-01 15:54 | CM ---
Reviewed chart, patient is medically cleared for discharge. Placed a call to Magy in admissions at [facility] who confirmed ability to accept patient today. # For report [phone] # for fax [phone]
Met with patient who is agreeable to discharge and transfer. Discussed w/c van cost and fee. Patient signed IMM and it is now on chart.
Plan: Case management will continue to follow and assist with discharge planning. [facility] today.
--- NOTE | 2024-02-01 17:21 | W.DCSUMMARY ---
Discharge Summary
Discharge Data
Date of Admission: 01/26/24
Date of Discharge: 02/01/24
-
Pending Results: No
Hospital Course
83-year-old female with paroxysmal AF on Eliquis, HFpEF, HTN, asthma, MS, CKD 4, H/O avascular hip necrosis that presented to the ED with asthma exacerbation in the context of viral URI. Was started on IV steroids and DuoNebs for asthma
exacerbation. Did not require mechanical ventilation or ICU. Required up to 5 L via NC with NRB while in the hospital for respiratory support. Clinically improved on steroids and bronchodilators and oxygen was weaned down eventually to room air.
Was given prednisone taper at discharge, planned for 30 mg with 10 mg reduction every 3 days. Encouraged to follow-up with PCP after discharge
Did have a significant food impaction event while in the hospital. Was seen by GI who started glucagon challenge that was unsuccessful. Eventually required EGD for clearance of retained food bolus. Was placed onto full liquid diets and advance
back to regular diet as tolerated.
Did have decompensated HFpEF in the setting of CKD 4, possibly type III cardiorenal syndrome. Was started on to IV diuretic regimen with adequate urine output and improvement volume status. Was transition to oral Bumex regimen of 2 mg twice daily.
Plan for consideration of GDMT with SGLT2i or MRA if renal function permits in the outpatient setting. Unclear if this would be feasible.
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
Discharge Plan
-
Patient Disposition: Shelter/SNF
Discharge Diagnosis/Procedures: Acute on chronic bronchitis/asthma exacerbation
Acute on chronic diastolic heart failure exacerbation likely secondary to medication noncompliance
Acute hypoxic respiratory failure
Dysphagia with food impaction status post endoscopy
Acute kidney injury on chronic kidney disease stage IV
Condition: Fair
Diet: 2 Gram Sodium and Restrict fluids to 48 oz
Activity: With assistance and As tolerated
Driving Restrictions: As prior to admission
Referrals:
Samuel Bridges MD [Active] - in two to three weeks
Félix Cavanaugh MD [Family Provider] -
Additional Discharge Medication Instructions: Start budesonide/formoterol 1 inhalation twice daily (maintenance inhaler for asthma)
Prednisone taper as described below: Reduced 10 mg every 3 days until discontinued
Reduce Eliquis from 5 mg to 2.5 mg twice daily
Start Bumex 2 mg twice daily
Take pantoprazole while you are on steroid taper
Prescriptions:
New
bumetanide 2 mg Tablet
2 mg PO BID AT 0800,1600 30 Days Qty: 60 0RF
prednisone 20 mg Tablet
See Taper PO DAILY Qty: 20 0RF
Taper: Prednisone DC Starting at 40 mg daily
40 mg Daily for 3 Days and 0 Hour
30 mg Daily for 3 Days and 0 Hour
20 mg Daily for 3 Days and 0 Hour
10 mg Daily for 3 Days and 0 Hour
Eliquis 2.5 mg Tablet
2.5 mg PO BID 30 Days Qty: 60 0RF
pantoprazole 20 mg Tablet,Delayed Release (Dr/Ec)
20 mg PO DAILY 12 Days Qty: 12 0RF
budesonide-formoterol 80-4.5 mcg/actuation HFA aerosol inhaler
1 inh inhalation BID Qty: 10.2 0RF
Continued
Asmanex Twisthaler 220 MCG aerosol powdr breath activated
1 puff inhalation R BID
potassium chloride [Klor-Con M20] 20 MEQ tablet,ER particles/crystals
20 meq PO DAILY
acetaminophen [Tylenol] 325 mg Tablet
325 mg PO DAILYPRN PRN (Reason: mild pain)
levothyroxine 25 mcg Tablet
25 mcg PO DAILY
metoprolol succinate 25 mg Tablet Extended Release 24 Hr
25 mg PO DAILY
amiodarone 100 mg Tablet
100 mg PO DAILY
levalbuterol tartrate 45 mcg/actuation Hfa Aerosol Inhaler
2 inh INHALATION R Q6HPRN PRN (Reason: sob)
Discontinued
Eliquis 5 MG tablet
5 mg PO BID
bumetanide 2 MG tablet
4 mg PO DAILY
Discharge Orders:
Discharge Patient (As Directed); Ordered 02/01/24
Ordered By: Ta Ware
Discharge Date and Time
Discharge Date/Time: 02/01/24 16:48
Print Language: YEMENI
== END 2024-02-01 16:48 | DRG 291 ==
LOC: 3 WEST ACU 13:01
PROVIDERS: Emergency Medicine; Hospitalist; ADMITTING PHYSICIAN Hospitalist; ATTENDING PHYSICIAN Internal Medicine; CONSULT PHYSICIAN Internal Medicine Cardiovascular Disease; CONSULT PHYSICIAN Internal Medicine Critical Care Medicine; CONSULT PHYSICIAN Internal Medicine Gastroenterology; EMERGENCY PHYSICIAN Student in an Organized Health Care Education/Training Program; FAMILY PHYSICIAN Internal Medicine
PROC: 0DC38ZZ Extirpation of Matter from Lower Esophagus, Via Natural or Artificial Opening Endoscopic (ICD-10-PCS; 2024-01-28)
DX: I13.0 Hypertensive heart and chronic kidney disease with heart failure and stage 1 through stage 4 chronic kidney disease, or unspecified chronic kidney disease (principal); I50.33 Acute on chronic diastolic (congestive) heart failure; J96.01 Acute respiratory failure with hypoxia; J45.901 Unspecified asthma with (acute) exacerbation; N18.4 Chronic kidney disease, stage 4 (severe); I48.21 Permanent atrial fibrillation; N17.9 Acute kidney failure, unspecified; J84.9 Interstitial pulmonary disease, unspecified; G35 Multiple sclerosis; D63.1 Anemia in chronic kidney disease; J20.9 Acute bronchitis, unspecified; T18.128A Food in esophagus causing other injury, initial encounter; W44.F3XA Food entering into or through a natural orifice, initial encounter; K20.90 Esophagitis, unspecified without bleeding; M54.12 Radiculopathy, cervical region; J44.89 Other specified chronic obstructive pulmonary disease; Z11.52 Encounter for screening for COVID-19; Z91.148 Patient's other noncompliance with medication regimen for other reason; Z88.2 Allergy status to sulfonamides; Z88.1 Allergy status to other antibiotic agents; Z79.01 Long term (current) use of anticoagulants; Z79.899 Other long term (current) drug therapy; Z79.890 Hormone replacement therapy
CPT/HCPCS: 71045; 71046; 74230; 80048; 80053; 83880; 85025; 87502; 87811; 92610; 92611; 93005; 94640; 96374; 97116; 97162; 97166; 97530; 99285; J1610

== ENCOUNTER → 2024-02-05 12:24 | Outpatient (REF) | payer OTHER, MEDICARE, SELFPAY ==
[2024-02-05 13:30] LABS: Blood Urea Nitrogen 53 mg/dl (7-17); Calcium 8.3 mg/dl (8.4-10.2); Carbon Dioxide 36 mmol/L (22-30); Chloride 91 mmol/L (98-107); Glucose 101 mg/dl (70-99); Potassium 4.2 mmol/L (3.5-5.1); Sodium 134 mmol/L (135-145); eGFR 27.44
[2024-02-05 13:33] LABS: Hemoglobin 12.3 g/dL (12.0-16.0); Mean Corp Hgb Conc. 32.4 g/dL (33.0-37.0); Mean Corpuscular Hgb 30.6 pg (27.0-31.0); Mean Corpuscular Volume 94.5 fL (81.0-99.0); Platelet Count 221 10^3/uL (130-400); Red Blood Cell Count 4.02 10^6/uL (4.20-5.40); White Blood Cell Count 15.2 10^3/uL (4.8-10.8)
[2024-02-05 14:15] LABS: % Basophils 0.5 % (0-2); % Eosinophils 0.1 % (0-6); % Immature Granulocytes 6.3 % (0-0.5); % Lymphocytes 6.4 % (20.5-51.1); % Monocytes 7.8 % (1.7-9.3); % Neutrophils 78.9 % (42.2-75.2); Absolute Basophils 0.1 10^3/uL (0-0.2); Absolute Monocytes 1.2 10^3/uL (0.1-0.6); Nucleated Red Blood Cells % 0 %
== END ==
LOC: OLABP 12:24
PROVIDERS: ATTENDING PHYSICIAN Family Medicine
DX: J20.9 Acute bronchitis, unspecified (principal); M18.4 Other bilateral secondary osteoarthritis of first carpometacarpal joints; I13.0 Hypertensive heart and chronic kidney disease with heart failure and stage 1 through stage 4 chronic kidney disease, or unspecified chronic kidney disease; G35 Multiple sclerosis; J44.9 Chronic obstructive pulmonary disease, unspecified; I48.19 Other persistent atrial fibrillation; I50.33 Acute on chronic diastolic (congestive) heart failure; I51.7 Cardiomegaly; J45.901 Unspecified asthma with (acute) exacerbation
CPT/HCPCS: 36415; 80048; 85025

== ENCOUNTER → 2024-02-12 10:54 | Outpatient (REF) | payer OTHER, MEDICARE, SELFPAY ==
[2024-02-12 11:17] LABS: % Basophils 0.2 % (0-2); % Eosinophils 0.7 % (0-6); % Immature Granulocytes 2.8 % (0-0.5); % Lymphocytes 5.9 % (20.5-51.1); % Monocytes 6.4 % (1.7-9.3); Absolute Eosinophils 0.1 10^3/uL (0-0.7); Absolute Immature Granulocytes 0.4 10^3/uL (0-0.05); Absolute Lymphocytes 0.8 10^3/uL (1.2-3.4); Absolute Monocytes 0.9 10^3/uL (0.1-0.6); Absolute Neutrophils 11.6 10^3/uL (1.4-6.5); Hematocrit 38.2 % (37.0-47.0); Hemoglobin 12.3 g/dL (12.0-16.0); Mean Corp Hgb Conc. 32.2 g/dL (33.0-37.0); Mean Corpuscular Hgb 30.3 pg (27.0-31.0); Mean Corpuscular Volume 94.1 fL (81.0-99.0); Mean Platelet Volume 11.2 fL (7.4-10.4); Nucleated Red Blood Cells % 0 %; Platelet Count 158 10^3/uL (130-400); Red Blood Cell Count 4.06 10^6/uL (4.20-5.40); Red Cell Dist. Width 13.2 % (11.5-14.5); White Blood Cell Count 13.8 10^3/uL (4.8-10.8)
== END ==
LOC: OLABP 10:54
PROVIDERS: ATTENDING PHYSICIAN Family Medicine
DX: J20.9 Acute bronchitis, unspecified (principal); M18.4 Other bilateral secondary osteoarthritis of first carpometacarpal joints; I13.0 Hypertensive heart and chronic kidney disease with heart failure and stage 1 through stage 4 chronic kidney disease, or unspecified chronic kidney disease; G35 Multiple sclerosis; J44.9 Chronic obstructive pulmonary disease, unspecified; I48.19 Other persistent atrial fibrillation
CPT/HCPCS: 36415; 85025

== ENCOUNTER → 2024-03-23 16:52 | Outpatient (REF) | payer MEDICARE, OTHER, SELFPAY ==
[2024-03-23 17:26] LABS: % Basophils 1.1 % (0-2); % Eosinophils 2.8 % (0-6); % Immature Granulocytes 1.5 % (0-0.5); % Lymphocytes 23.8 % (20.5-51.1); % Neutrophils 56.8 % (42.2-75.2); Absolute Basophils 0.1 10^3/uL (0-0.2); Absolute Eosinophils 0.2 10^3/uL (0-0.7); Absolute Immature Granulocytes 0.1 10^3/uL (0-0.05); Absolute Monocytes 1.2 10^3/uL (0.1-0.6); Absolute Neutrophils 4.8 10^3/uL (1.4-6.5); Hematocrit 32.6 % (37.0-47.0); Hemoglobin 10.4 g/dL (12.0-16.0); Mean Corp Hgb Conc. 31.9 g/dL (33.0-37.0); Mean Corpuscular Hgb 29.6 pg (27.0-31.0); Mean Corpuscular Volume 92.9 fL (81.0-99.0); Mean Platelet Volume 11.6 fL (7.4-10.4); Nucleated Red Blood Cells % 0 %; Platelet Count 216 10^3/uL (130-400); Red Blood Cell Count 3.51 10^6/uL (4.20-5.40); Red Cell Dist. Width 14.9 % (11.5-14.5); White Blood Cell Count 8.5 10^3/uL (4.8-10.8)
[2024-03-23 17:56] LABS: Albumin 3.4 g/dl (3.5-5.0); Blood Urea Nitrogen 24 mg/dl (7-17); Calcium 8.6 mg/dl (8.4-10.2); Carbon Dioxide 31 mmol/L (22-30); Chloride 95 mmol/L (98-107); Glucose 91 mg/dl (70-99); Phosphorus 3.2 mg/dl (2.5-4.5); Sodium 134 mmol/L (135-145); eGFR 21.57
== END ==
LOC: CLAB 16:52
PROVIDERS: ATTENDING PHYSICIAN Internal Medicine
DX: N17.9 Acute kidney failure, unspecified (principal); I48.0 Paroxysmal atrial fibrillation; I10 Essential (primary) hypertension; I50.32 Chronic diastolic (congestive) heart failure; Z79.01 Long term (current) use of anticoagulants
CPT/HCPCS: 36415; 80069; 83970; 84155; 84165; 85025

== ENCOUNTER → 2024-03-25 12:41 | Outpatient (REF) | payer MEDICARE, OTHER, SELFPAY ==
[2024-03-25 17:08] LABS: Protein/creatinine Ratio 0.2; Urine Protein 14 mg/dl
== END ==
LOC: HWLAB 12:41
PROVIDERS: ATTENDING PHYSICIAN Internal Medicine; FAMILY PHYSICIAN Internal Medicine
DX: N17.9 Acute kidney failure, unspecified (principal)
CPT/HCPCS: 82570; 83521; 84156; 86335

== ENCOUNTER → 2024-04-05 10:50 | Outpatient (REF) | payer MEDICARE, OTHER, SELFPAY | LOC: HWRAD 10:50 | PROVIDERS: ATTENDING PHYSICIAN Internal Medicine; FAMILY PHYSICIAN Internal Medicine | DX: N17.9 Acute kidney failure, unspecified (principal) | CPT/HCPCS: 76770 ==

== ENCOUNTER → 2024-05-13 10:26 | Outpatient (REF) | payer MEDICARE, OTHER, SELFPAY ==
[2024-05-13 12:44] LABS: Hematocrit 33.9 % (37.0-47.0); Mean Corp Hgb Conc. 32.4 g/dL (33.0-37.0); Mean Corpuscular Hgb 29.9 pg (27.0-31.0); Mean Corpuscular Volume 92.1 fL (81.0-99.0); Mean Platelet Volume 11.3 fL (7.4-10.4); Platelet Count 235 10^3/uL (130-400); Red Blood Cell Count 3.68 10^6/uL (4.20-5.40); Red Cell Dist. Width 14.5 % (11.5-14.5); White Blood Cell Count 8.7 10^3/uL (4.8-10.8)
[2024-05-13 13:15] LABS: Albumin 4.1 g/dl (3.5-5.0); Blood Urea Nitrogen 29 mg/dl (7-17); Calcium 9.7 mg/dl (8.4-10.2); Carbon Dioxide 30 mmol/L (22-30); Chloride 97 mmol/L (98-107); Glucose 111 mg/dl (70-99); Iron 89 ug/dl (37-170); Phosphorus 4.3 mg/dl (2.5-4.5); Potassium 4.2 mmol/L (3.5-5.1); Sodium 136 mmol/L (135-145); eGFR 21.57
[2024-05-13 13:24] LABS: Percent Saturation 24 % (20-50); Total Iron Binding Capacity 359 ug/dl (265-497)
[2024-05-13 13:28] LABS: Free T3 2.56 pg/ml (2.77-5.27); Free T4 2.24 ng/dl (0.78-2.19); Vitamin D, 25-OH*** 25.8 ng/mL (30-80)
[2024-05-13 13:44] LABS: Ferritin 39.6 ng/ml (11.1-264.0)
== END ==
LOC: HWRAD 10:26
PROVIDERS: ATTENDING PHYSICIAN Internal Medicine; FAMILY PHYSICIAN Internal Medicine; REFERRING PHYSICIAN Internal Medicine Endocrinology, Diabetes & Metabolism
DX: N18.4 Chronic kidney disease, stage 4 (severe) (principal); I10 Essential (primary) hypertension; E05.80 Other thyrotoxicosis without thyrotoxic crisis or storm; N25.81 Secondary hyperparathyroidism of renal origin; D64.9 Anemia, unspecified
CPT/HCPCS: 36415; 80069; 82306; 82728; 83521; 83540; 83550; 84156; 84439; 84443; 84481; 85027; 86335; 93975

== ENCOUNTER → 2024-12-09 10:45 | Outpatient (REF) | payer MEDICARE, OTHER, SELFPAY ==
[2024-12-09 12:32] LABS: Hematocrit 36.2 % (37.0-47.0); Hemoglobin 12.1 g/dL (12.0-16.0); Mean Corp Hgb Conc. 33.4 g/dL (33.0-37.0); Mean Corpuscular Volume 92.3 fL (81.0-99.0); Platelet Count 204 10^3/uL (130-400); Red Cell Dist. Width 13.9 % (11.5-14.5)
[2024-12-09 12:54] LABS: Albumin 4.3 g/dl (3.5-5.0); Blood Urea Nitrogen 42 mg/dl (7-17); Calcium 9.2 mg/dl (8.4-10.2); Carbon Dioxide 30 mmol/L (22-30); Chloride 98 mmol/L (98-107); Glucose 95 mg/dl (70-99); Potassium 4.7 mmol/L (3.5-5.1); Sodium 136 mmol/L (135-145); eGFR 22.66
[2024-12-09 13:14] LABS: Free T3 2.70 pg/ml (2.77-5.27); Vitamin D, 25-OH*** 50.6 ng/mL (30-80)
[2024-12-09 13:27] LABS: TSH 6.79 uIU/ml (0.47-4.68)
== END ==
LOC: HWLAB 10:45
PROVIDERS: ATTENDING PHYSICIAN Internal Medicine; FAMILY PHYSICIAN Internal Medicine; REFERRING PHYSICIAN Internal Medicine Endocrinology, Diabetes & Metabolism
DX: E05.80 Other thyrotoxicosis without thyrotoxic crisis or storm (principal); N18.4 Chronic kidney disease, stage 4 (severe); N25.81 Secondary hyperparathyroidism of renal origin
CPT/HCPCS: 36415; 80069; 82306; 82652; 84439; 84443; 84481; 85027

== ENCOUNTER 2025-02-12 13:10 | Inpatient (IN) | payer MEDICARE, OTHER, SELFPAY ==
[2025-02-12] VITALS (20 sets, daily range): BP systolic 47–126; BP diastolic 16–80; PULSE 2–73; BMI 29.9
[2025-02-12 10:50] LABS: Hematocrit 37.3 % (37.0-47.0); Hemoglobin 12.2 g/dL (12.0-16.0); Mean Corp Hgb Conc. 32.7 g/dL (33.0-37.0); Mean Corpuscular Volume 93.5 fL (81.0-99.0); Nucleated Red Blood Cells % 0 %; Platelet Count 216 10^3/uL (130-400); Red Cell Dist. Width 14.1 % (11.5-14.5)
--- NOTE | 2025-02-12 11:00 | ED.GENMED ---
History of Present Illness
General
Chief Complaint: Chest Pain
Time Seen by Provider: 02/12/25 10:38
History of Present Illness
History of Present Illness:
84-year-old female with history of A-fib on Eliquis, chronic kidney disease, CHF, hypertension, hyperlipidemia presenting for chest pain. Patient reports symptoms started yesterday afternoon when she was moving [place] decorations around her
house. Pain has been persistent since. She thought that it was from indigestion so she tried some Tums without relief. Symptoms continued this morning which prompted her to call the ambulance. When ambulance arrived, noted concerning EKG. They
administered aspirin and 2 nitroglycerin. At time of arrival, symptoms had resolved. Denies any known history of coronary artery disease in the past. She follows with . Denies additional acute medical complaints
Past History
Past History
ED Past Medical History: Arrthythmia, COPD, HTN and Other
Social History
Tobacco: Non-smoker
Alcohol: None
Living: alone
Phy Exam
Physical Exam
Physical Exam:
General: Well-appearing, no clinical signs of dehydration, nontoxic and in no acute distress
HEENT: protecting airway
Neck: appears supple
CV: Normal heart rate, regular rhythm
Resp: No accessory muscle use, no increased work of breathing, lungs clear to auscultation bilaterally
Abd: Soft and non-distended, no tenderness to palpation
Extremities: No deformities, +2 pitting edema bilaterally, symmetric
Neuro: alert, no focal neurologic deficit
: deferred
Rectal: deferred
Psych: Normal affect
Skin: Intact
Scores
Heart Score for Chest Pain Patients
STEMI patient?: Yes
History: Highly Suspicious
ECG: Significant ST-Depression
Age: >/= 65 years
Risk Factors: >/= 3 Risk Factors or History of CAD
Course
Orders/Labs/Results
Orders:
Orders
02/12/25 10:35
Electrocardiogram (*1) Urgent
Reason for Study: Chest Pain
Cardiac Monitoring- Treatment ONCE
EKG- Treatment ONCE
IV Insert/Care/Rem.- Treatment PRN
O2 Therapy [RESP] Urgent
Titrate/Wean O2 to maintain O2 sat greater than (%): 90
Special Instructions: Maintain sats >/=90%
Pulse Ox/spot Check [RESP] Urgent
Quantity: 1
Special Instructions: ON ROOM AIR
02/12/25 10:39
Complete Blood Count/With Diff Urgent
Comprehensive Metabolic Panel Urgent
Prothrombin Time Urgent
Troponin I Urgent
Abnormal Lab Results
02/12/25
10:39
WBC 10.9 H 10^3/uL
(4.8-10.8)
RBC 3.99 L 10^6/uL
(4.20-5.40)
MCHC 32.7 L g/dL
(33.0-37.0)
Abs Immat Gran (auto) 0.1 H 10^3/uL
(0-0.05)
Absolute Neuts (auto) 8.7 H 10^3/uL
(1.4-6.5)
Neutrophils % 80.0 H %
(42.2-75.2)
Lymphocytes % 14.4 L %
(20.5-51.1)
02/12/25 10:39
Vital Signs
Initial and Last Documented VS:
Initial Vital Signs
Temp Pulse Resp BP Pulse Ox
97.4 F 84 26 117/71 97
02/12/25 10:37 02/12/25 10:37 02/12/25 10:37 02/12/25 10:37 02/12/25 10:37
Last Documented Vital Signs
Temp Pulse Resp BP Pulse Ox
97.4 F 84 26 117/71 97
02/12/25 10:37 02/12/25 10:37 02/12/25 10:37 02/12/25 10:37 02/12/25 10:37
MDM/Problems Addressed
MDM/Problems Addressed:
84-year-old female with history of CHF, CKD, A-fib on Eliquis presenting for chest pressure since yesterday afternoon. Vital signs on arrival are normal
On exam patient is in no acute distress, received both aspirin and nitro prior to arrival with improvement of patient's pain. Medics had obtained a twelve-lead prior to arrival, however had difficulty transmitting it. Concerning findings on their
twelve-lead, however a lot of artifact. EKG repeated upon arrival, consistent with a STEMI with ST elevation laterally with depressions inferiorly. STEMI alert activated. Cardiology soon at bedside after calling a STEMI alert. Agree with
findings of EKG as well as patient's clinical presentation, cardiac risk factors. Plan for catheterization lab. Per cardiac land management supervisor, holding Brilinta and heparin until getting up to the lab. Patient at this time is hemodynamically stable. I
did call patient's son, Dariel Laughlin, who was made aware of patient's clinical status.
*Pulse Oximetry
SaO2: 97
Oxygen Mode of Delivery: Room air
Patient hypoxic: no
*EKG
Interpreted by ED Provider?: Yes
EKG Intrepretation Date: 02/12/25
Interpretation: abnormal
Comparison EKG: changes noted
Heart Rate: 87
Rate: normal
Rhythm: sinus
[place]: normal axis
Interval: normal interval
QRS Pattern: normal QRS
Ischemia: ST elevation (laterally)
*Critical Care Note
Total Time (30-74mins, 75-104mins- exclusive of procedures): Not Applicable
ED Attending Note
-
Portions of this chart may have been created with voice recognition software.� Occasional wrong word or��sound alike� substitutions may have occurred due to the inherent limitations of voice recognition software.
Discharge Plan
Departure
Patient Disposition: [facility]
Date of Disposition: 02/12/25
Time of Disposition: 10:52
Presentation/result/management discussed w/ accepting MD/DO: cariology
Discharge Problem:
ST elevation NV (STEMI), Chest pain
Prescriptions:
No Action
Asmanex Twisthaler 220 MCG aerosol powdr breath activated
1 puff inhalation R BID
potassium chloride [Klor-Con M20] 20 MEQ tablet,ER particles/crystals
20 meq PO DAILY
acetaminophen [Tylenol] 325 mg Tablet
325 mg PO DAILYPRN PRN (Reason: mild pain)
levothyroxine 25 mcg Tablet
25 mcg PO DAILY
metoprolol succinate 25 mg Tablet Extended Release 24 Hr
25 mg PO DAILY
amiodarone 100 mg Tablet
100 mg PO DAILY
levalbuterol tartrate 45 mcg/actuation Hfa Aerosol Inhaler
2 inh INHALATION R Q6HPRN PRN (Reason: sob)
bumetanide 2 mg Tablet
2 mg PO BID AT 0800,1600 30 Days Qty: 60 0RF
prednisone 20 mg Tablet
See Taper PO DAILY Qty: 20 0RF
Taper: Prednisone DC Starting at 40 mg daily
40 mg Daily for 3 Days and 0 Hour
30 mg Daily for 3 Days and 0 Hour
20 mg Daily for 3 Days and 0 Hour
10 mg Daily for 3 Days and 0 Hour
Eliquis 2.5 mg Tablet
2.5 mg PO BID 30 Days Qty: 60 0RF
pantoprazole 20 mg Tablet,Delayed Release (Dr/Ec)
20 mg PO DAILY 12 Days Qty: 12 0RF
budesonide-formoterol 80-4.5 mcg/actuation HFA aerosol inhaler
1 inh inhalation BID Qty: 10.2 0RF
Referrals:
UNKNOWN - PT NOT,INTERVIEWE [Family Provider]
Interventions
Interventions:
*General Assessment Last Done: 02/12/25 10:37
*Neglect/Abuse Screening Last Done: 02/12/25 10:37
*ED COVID-19 Vaccine History Last Done: 02/12/25 10:57
*ED Influenza Vaccine History Last Done: 02/12/25 10:57
Discharge Date and Time
Print Language: KENYAN
[2025-02-12 11:01] LABS: INR 1.31; PT 16.4 Sec (11.4-14.6)
[2025-02-12 11:04] LABS: ALT (SGPT) 31 U/L (0-35); AST (SGOT) 102 U/L (14-36); Albumin 4.5 g/dl (3.5-5.0); Alkaline Phosphatase 65 U/L (38-126); Blood Urea Nitrogen 42 mg/dl (7-17); Calcium 10.1 mg/dl (8.4-10.2); Carbon Dioxide 27 mmol/L (22-30); Chloride 99 mmol/L (98-107); Estimated Creatinine Clearance 15 ml/min; Glucose 169 mg/dl (70-99); Potassium 5.0 mmol/L (3.5-5.1); Sodium 136 mmol/L (135-145); Total Protein 7.7 g/dl (6.3-8.2); eGFR 20.32
--- NOTE | 2025-02-12 11:21 | HPS.HSE ---
Family Physician
-
Family Physician: INTERVIEWE UNKNOWN - PT NOT
Chief Complaint
-
Chest pain.
History of Present Illness
84 y/o female with HTN, asthma, CKD4, HFpEF and persistent AF on apixaban presents to the [facility] ER with chest pain since yesterday. Patient was putting away [place] decorations when she developed chest pain. The pain has been constant without
change overnight. She admits to difficulty breathing but denies palpitations, syncope or presyncope. She has never had a heart attack before. In the ER, she continues to complain of chest pain and SOB. EKG shows anterior MICAELA consistent with
acute myocardial infarction. Initial troponin is 11.
Medical History
Past Medical History
Past Medical History: Reports Arrhythmia (Persistent atrial fibrillation.), CHF (Chronic HFpEF), COPD, HTN, Renal Failure (CKD4) and Other (Multiple Sclerosis, in remission)
Past Surgical History: Reports Cholecystectomy and Gynocological (D&C)
Social History
Unable to obtain full social history at this time due to: Acuity
Family History
Family History: Not pertinent
Allergies / Home Medications
Allergies reflects when Allergies were last updated in [facility].
Home Medications with original date entered in [facility]
Allergy/Medication List:
Medication reconciliation taken from latest outpatient notes due to acuity.
Home Medications:
Acetaminophen 325 mg every 6 hours as needed
Amiodarone 100 mg daily
Budesonide nebulizer twice daily
Apixaban 2.5 mg twice daily
Ipratropium/albuterol every 6 hours as needed
Levalbuterol 0.63 mg every 8 hours as needed
Levalbuterol 45 mcg 4 times daily as needed
Metoprolol succinate 25 mg daily
Polyethylene glycol 17 g as directed
Potassium chloride 20 mEq daily
Levothyroxine 25 mcg daily
Vitamin D3 1000 units daily
Allergies:
Sulfa
Azithromycin
Nonsteroidal antiinflammatory drugs
Erythromycin
Trimethoprim
Strawberries
Shellfish
Review of Systems
-
Unable to obtain full review of systems at this time due to: Acuity
History Source: Patient
Constitutional: Reports Fatigue
EENT: Reports No Symptoms
Respiratory: Reports Trouble Breathing
Cardiac: Reports Chest Pain
Abdomen/GI: Reports Vomiting
: Reports No Symptoms
Musculoskeletal: Reports No Symptoms
Skin: Reports No Symptoms
Neurological: Reports No Symptoms
Endocrine: Reports No Symptoms
Hematologic/Lymphatic: Reports No Symptoms
Psych: Reports No Symptoms
Physical Exam
Vital Signs
Vital Signs
Temp Pulse Resp BP Pulse Ox
36.3 C 84 26 117/71 97
02/12/25 10:37 02/12/25 10:37 02/12/25 10:37 02/12/25 10:37 02/12/25 11:02
Physical Exam
General: Well Developed, Well Nourished and Appears in Distress
HEENT: NormoCephalic, Anicteric, Moist mucous membranes, Atraumatic, PERRLA, [place] Conjunctivae, No Ptosis and Nose Appears Normal
Respiratory: Clear and Non Labored Respirations
Cardiac: S1/S2 and Regular Rhythm
Breast: Deferred by me
GI: Soft, Non Tender, Non Distended and Normal Bowel Sounds
Rectal: Deferred by Provider
Genito-urinary: Deferred by me
Musculoskeletal: No Clubbing, No Cyanosis and No Edema
Skin: Warm and Dry
Neuro: AO x 3
Hematologic/Lymphatic: No Lymphadenopathy
Psych: Calm and Intact Judgment/Insight
Laboratory Results
-
02/12/25 10:39
02/12/25 10:39
Laboratory Results
PT 16.4 Sec (11.4-14.6) H 02/12/25 10:39
INR 1.31 02/12/25 10:39
Total Bilirubin 1.1 mg/dl (0.2-1.3) 02/12/25 10:39
AST 102 U/L (14-36) H 02/12/25 10:39
ALT 31 U/L (0-35) 02/12/25 10:39
Alkaline Phosphatase 65 U/L (38-126) 02/12/25 10:39
Data Reviewed
-
Diagnostic Radiology: Image Personally Visualized and interpreted
Medical Tests (Nuc Med, Echo, EKG etc): Image Personally Visualized and interpreted and Report Reviewed by me
Lab Data: Labs Reviewed by me, Discussed with Physician and Discussed with Patient
Old Records: Reviewed
Impression/Plan
-
Impression/Plan: 84 y/o female with severe COPD, CKD4, atrial fibrillation on amiodarone and apixaban and HFpEF presenting with anterior STEMI and acute on chronic heart failure.
#Anterior STEMI
-Acute, threat to life.
-Emergency coronary angiography with ad hoc PCI.
-Risks/benefits explained.
-Consent signed and on the chart.
-Further instructions to follow.
#HFpEF
-Acute on chronic.
-LVEF may be impacted.
-Check LVEDP as part of cath.
-Diuersis as hemodynamics will allow.
#Atrial fibrillation
-Persistent.
-Currently in NSR.
-Rate/rhythm control with amiodarone.
-CHADS2-Vasc = 4 (CHF, Age x2, Female).
-Anticoagulation on hold pending cardiac catheterization.
#COPD
-Chronic, stable.
-Resume home bronchodilators.
#CKD4
-Chronic.
-Monitor renal function in light of impending cardiac catheterization and diuresis.
Critical Care Time = 35 minutes.
[2025-02-12 11:26] LABS: Troponin I 11.800 ng/ml
[2025-02-12 12:18] LABS: ACT-LR - POC 368 Seconds (116-155)
--- NOTE | 2025-02-12 12:44 | ITS.CL.ANGIO ---
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
Angioplasty
Procedure Report:
CARDIAC CATHETERIZATION REPORT
Date of Procedure: 02/12/2025
Referring: Merisas Mtz D.O.
INDICATION: Delayed presentation anterior ST elevation myocardial infarction.
PROCEDURE:
1. Left heart catheterization.
2. Coronary angiography.
3. IVUS guided PCI of the proximal LAD.
A total of 0 minutes of procedural/moderate sedation was utilized. An independent medical physics researcher was present to assist with and help manage the patient's level of consciousness and physiologic status.
ACCESS:
1. 6 Slovak right radial artery using a modified Seldinger technique.
CATHETERS:
1. 5 [place] JR4.
2. 5 Slovak JL 3.5.
3. 6 Slovak EBU 3.5 guiding catheter.
HEMODYNAMIC DATA
Weight (kg): 67.1
AO (s/d/x, mmHg): 121/82/99
LV (s/x mmHg): 121/28
AV gradient (x, mmHg): None.
LEFT VENTRICULOGRAPHY: Not performed.
CORONARY ANGIOGRAPHY
Dominance: Right.
Left Main: Normal size, bifurcating vessel. There is no coronary artery disease.
LAD: Large size vessel giving rise to 2 diagonals. There is a 99% lesion in the proximal vessel with ELY I flow. The mid and distal vessel abruptly tapers without obvious atherosclerotic lesion.
Ramus: Congenitally absent.
Circumflex: Large size, nondominant vessel giving rise to 1 obtuse marginal before terminating as a large posterolateral branch. There is no coronary artery disease.
RCA: Large size, dominant vessel. There is a 99% lesion in the proximal vessel with ELY I flow into the mid and distal RCA. Robust collaterals are visible from the circumflex supplying the distal RCA and RPDA.
INTERVENTION(S)
1. Successful IVUS guided PCI of the 99% proximal LAD lesion (Xience Skypoint 3.0 x 18 ANGELICA, postdilated with a 3.25 NC balloon) with reduction in stenosis to 0%, restoring ELY-3 flow.
Narrative:
The decision was made to proceed with percutaneous coronary intervention. The diagnostic catheter was removed over a wire and a 6Fr EBU 3.5 guiding catheter was advanced to the aortic root and seated in the left main coronary artery. Additional
heparin was given and a Power Turn Flex wire was advanced into the distal LAD. The 99% proximal LAD lesion was predilated with a 2.0 x 12 semi-compliant balloon to 12 luiza.
Given the abrupt tapering of the mid LAD, I was concern for type II SCAD. The decision was made to perform intracoronary imaging. An IVUS catheter was advanced through the guiding catheter and into the ostium of the artery. Ring down was performed
once the imaging crystal was no longer inside of the guiding catheter. The IVUS catheter was advanced into the distal LAD. Intravascular ultrasound was performed in a retrograde fashion using a slow pullback. Intracoronary imaging demonstrated a
small lumen of the mid and distal LAD without obvious intramural hematoma in the mid and distal LAD. The proximal LAD showed a ruptured atherosclerotic plaque. Vessel measurements were obtained..
The IVUS catheter was removed and a Xience Skypoint 3.0 x 18 drug-eluting stent was advanced. The stent was deployed at 12 atmospheres. The stent balloon was removed. A 3.25 x 12 noncompliant balloon was advanced into the stent and the stent was
postdilated to 15 atmospheres. IVUS was repeated in the proximal LAD, demonstrating good stent expansion and apposition with no evidence of rupture or dissection. Angiography was performed in orthogonal views, confirming good stent expansion and
an excellent angiographic result with confucianism of ELY-3 flow. The coronary wire was withdrawn and the guide was disengaged from the artery. The catheter was removed over a standard J-wire.
Closure Device: Vascular band.
Radiation (mGy): 363
DAP (cm2.Gy): 15.8
Fluoroscopy time (minutes): 9.0
CONCLUSIONS
1. Right dominant circulation with a 99% occlusion of the proximal RCA with ELY I flow and robust collaterals from the circumflex and a culprit, 99% lesion in the proximal LAD with ELY I flow, status post successful IVUS guided PCI (Xience
Skypoint 3.0 x 28 ANGELICA, post dilated with a 3.25 NCB).
2. Severely elevated filling pressures (LVEDP = 28 mmHg at 67.1 kg).
RECOMMENDATIONS:
1. Expectant management after cardiac catheterization via right radial approach.
2. Limited weight bearing on the right wrist for one week.
3. Antiplatelet therapy with clopidogrel and apixaban for at least 1 year, followed by apixaban indefinitely.
4. OMT/GDMT as hemodynamics will tolerate. Start with aggressive diuresis given LVEDP of 28 mmHg.
5. Aggressive antilipid therapy. Start high-dose, high potency statin. Goal LDL <55.
6. Echocardiogram ordered and pending.
7. Plan for possible staged PCI of the proximal RCA for complete revascularization.
8. Referral to cardiac rehab.
Copy to: Ben Bowers M.D., Félix Cavanaugh M.D., Christine Selby M.D., Samuel Bridges M.D.
Ta Funk DO, FACC, FACP
--- NOTE | 2025-02-12 13:15 | W.PN.ANESINT ---
Anesthesia Intubation Note
- Intubation Note
Intubation Note:
Diagnosis: cardiac arrest
Blade: Mac 4 - glidescope
Tube Size: 8
Depth: 22
Side Taped: right
Drugs Used: phenylephrine 50mcg / Propofol 50mg
Grade View: I
EtCO2 Present: +
Atraumatic: yes
Attempts: 1
Insertion Start and Stop Time:
SaO2 Pre: 98
SaO2 Post: 98
Glidescope Used: yes
Other Airway Adjustments: suctioned prior to intubation as there was blood in back of throat upon initial DL
Pre-Oxygenated: Yes
Portable Chest X-Ray: to follow
RSI: no
Suctioned: yes - bloody
Bilateral Breath Sounds Confirmed: Yes
Vent Settings:
Settings per _X__Attending Physician
[2025-02-12 13:50] LABS: Glycohemoglobin (HgbA1c) 6.0 % (4.0-5.9)
--- NOTE | 2025-02-12 14:21 | RESPNOTE ---
removed pt from bipap because pt complained of nausea while on bipap
pt immediately became unresponsive , CPR Initiated
see code9 log.
--- NOTE | 2025-02-12 14:36 | W.PN.UPDATE ---
Update Note
Progress Note Update
The patient was transferred to CVICU after her PCI procedure. After leaving the cardiac Collar Fuser, the patient was chest pain-free and remained on BiPAP to support her respiratory status given her severely elevated LVEDP. In the CVICU, the patient
complains of nausea and the nursing staff remove the BiPAP in case the patient were to vomit to avoid aspiration. After removing the BiPAP, the patient became unresponsive and a code 9 was called. ACLS was initiated. The patient received several
rounds of amiodarone, calcium, bicarbonate and epinephrine. Bedside echocardiogram showed a large pericardial effusion. Bedside pericardiocentesis was performed, removing >200 mL of bright red blood. The patient was initially stabilized and
repeat ultrasound demonstrated resolution of the pericardial effusion.
Over the course of the next 40 minutes, the patient intermittently lost pulses and spite of maximum pressor support and antiarrhythmic therapy. Once again, she was given multiple doses of epinephrine and started on an epinephrine drip. Dopamine
was added. She was given at least 2 doses of amiodarone 150 mg IV. At one point, the patient lapsed into ventricular tachycardia and was defibrillated twice. Ultrasound was repeated and demonstrated consistent resolution of the pericardial
effusion. We reviewed the cardiac catheterization films. There is no evidence of epicardial coronary artery perforation. There is a notable narrowing of the LAD in the mid and distal portion increases in diameter with systole. Given the volume
of blood that was removed with pericardial drain as well as the abrupt nature of her cardiovascular collapse, I suspect that the patient suffered left ventricular mechanical rupture (VSD versus pseudoaneurysm versus ischemic MR/papillary muscle).
High-quality CPR and ACLS was continued until all options were exhausted. The patient was pronounced at 13:56. The patient's niece was updated in person. The patient's son was informed over the phone (he currently resides in [place]).
Critical care time = 50 minutes.
--- NOTE | 2025-02-12 15:58 | PTCARENOTE ---
~1250: Received patient from [facility] on 3L NC. Patient AOx4, Ekg obtained showed NSR, SBP 110s. R radial TR band in place, site soft but ecchymotic. Patient was previously on Bipap in [facility] which was set up in room by respiratory prior to arrival. Pateint
work of breathing appeared labored, respiratory placed Bipap back on patient. A few minutes later, patient stated she felt nauseous so Bipap removed by respiratory. About 30 seconds after patient went unresponsive with no pulse, appeared to be PEA
on monitor. CODE 9 called and compressions/ ACLS initiated. Refer to code charting.
~1356: Time of called. Patient made presentable for family. [facility]OL called, patient not candidate for organ donation.
~1500: Patient personal belongings left with patient's family. Family does not know arrangements at this time, informed them to call hospital within 24-48 to let us know.
~[id number]: Family left. Post mortem care completed and body brought to [facility] by PCT.
[2025-02-13 08:15] LABS: ACT-LR - POC > 397 Seconds (116-155)
== END 2025-02-12 16:59 | disposition expired | DRG 322 ==
LOC: IVU 13:10
PROVIDERS: ADMITTING PHYSICIAN Internal Medicine Cardiovascular Disease; EMERGENCY PHYSICIAN Student in an Organized Health Care Education/Training Program
PROC: 4A023N7 Measurement of Cardiac Sampling and Pressure, Left Heart, Percutaneous Approach (ICD-10-PCS; 2025-02-12)
PROC: B240ZZ3 Ultrasonography of Single Coronary Artery, Intravascular (ICD-10-PCS; 2025-02-12)
PROC: 027034Z Dilation of Coronary Artery, One Artery with Drug-eluting Intraluminal Device, Percutaneous Approach (ICD-10-PCS; 2025-02-12)
PROC: B2111ZZ Fluoroscopy of Multiple Coronary Arteries using Low Osmolar Contrast (ICD-10-PCS; 2025-02-12)
DX: I21.09 ST elevation (STEMI) myocardial infarction involving other coronary artery of anterior wall (principal); I23.3 Rupture of cardiac wall without hemopericardium as current complication following acute myocardial infarction; I50.32 Chronic diastolic (congestive) heart failure; N18.4 Chronic kidney disease, stage 4 (severe); I13.0 Hypertensive heart and chronic kidney disease with heart failure and stage 1 through stage 4 chronic kidney disease, or unspecified chronic kidney disease; I48.19 Other persistent atrial fibrillation; J44.89 Other specified chronic obstructive pulmonary disease; Z90.49 Acquired absence of other specified parts of digestive tract; Z79.01 Long term (current) use of anticoagulants; E78.5 Hyperlipidemia, unspecified; G35.D Multiple sclerosis, unspecified
CPT/HCPCS: 71045; 80053; 83036; 84484; 85025; 85347; 85610; 93005; 93458; 99285; C1725; C1753; C1769; C1874; C1894; C9606; J0282; Q9967